=== PATIENT | male | born 1950 | race Caucasian/White ===

== ENCOUNTER 2020-08-01 13:29 | Outpatient (REF) | payer MEDICARE, MEDICAID, SELFPAY ==
[2020-08-01 15:20] LABS: Hematocrit 45.7 % (42-52); Mean Corpuscular HGB Conc 32.8 g/dl (31.0-36.0); Mean Corpuscular Hemoglobin 31.8 pg (27.0-33.0); Mean Platelet Volume 12.9 fL (9.4-12.4); Platelet Count 153 X10*3/uL (160-400); Red Blood Count 4.71 X10*6/uL (4.60-5.80); Red Cell Distribution Width 12.3 % (11.0-16.0); White Blood Count 7.2 X10*3/uL (4.8-10.8)
[2020-08-01 16:21] LABS: Alanine Aminotransferase 28 U/L (0-40); Albumin Level 4.3 g/dL (3.5-5.0); Alkaline Phosphatase 111 U/L (39-117); Anion Gap 13 (12-20); Aspartate Amino Transferase 24 U/L (5-37); Bilirubin Total 0.6 mg/dL (0.0-1.0); Blood Urea Nitrogen 21 mg/dL (9-16); Carbon Dioxide 33 mmol/L (22-29); Chloride 102 mmol/L (96-108); Cholesterol 119 mg/dL; Estimated Glomerular Filt Rate > 60; Glucose Random 85 mg/dL (60-115); HDL Cholesterol 42 mg/dL; LDL Cholesterol Calculated 62 mg/dl; Potassium 4.5 mmol/l (3.3-5.1); Sodium 143 mmol/L (135-145); Total Protein 6.7 g/dL (6.5-8.0); Triglycerides 77 mg/dL
== END 2020-08-01 13:30 | disposition home or self-care (01) ==
LOC: HO.LAB 13:29
PROVIDERS: Absent Provider Internal Medicine; PCP Internal Medicine; Visit Provider Internal Medicine
DX: I10 Essential (primary) hypertension (principal); J44.9 Chronic obstructive pulmonary disease, unspecified
CPT/HCPCS: 36415; 80053; 80061; 85027; 99212

== ENCOUNTER → 2021-01-31 13:59 | Outpatient (BNVA) | payer MEDICARE, MEDICAID, SELFPAY | PROVIDERS: PCP Internal Medicine; Visit Provider Internal Medicine | DX: J44.9 Chronic obstructive pulmonary disease, unspecified (principal); F17.200 Nicotine dependence, unspecified, uncomplicated | CPT/HCPCS: 99212 ==

== ENCOUNTER → 2021-05-04 14:44 | Outpatient (BNVA) | payer MEDICARE, MEDICAID, SELFPAY | PROVIDERS: PCP Internal Medicine; Visit Provider Internal Medicine | DX: J44.9 Chronic obstructive pulmonary disease, unspecified (principal); F17.200 Nicotine dependence, unspecified, uncomplicated | CPT/HCPCS: 99212 ==

== ENCOUNTER 2021-08-10 12:53 | Outpatient (REF) | payer MEDICARE, MEDICAID, SELFPAY ==
--- NOTE | ~2021-08-10 | CT_ITS ---
EXAMINATION: CT CHEST SCREENING CLINICAL INFORMATION: Former smoker. COMPARISON: CT chest screening 01/28/2020. TECHNIQUE: Multidetector volumetric CT imaging of the chest is performed without contrast using low dose technique. Additional 2D coronal and sagittal reformatted images and axial 3D maximum intensity projection (MIP) images are generated on the CT workstation. This CT examination was performed using dose optimization techniques as appropriate, variously including the following: *Automated exposure control *Adjustment of mA and/or kV according to patient size (this includes techniques or standardized protocols for targeted exams where dose is matched to indication/reason for exam; i.e. extremities or head) *Use of iterative reconstruction technique DLP: 210 mGy-cm FINDINGS: LUNGS: There is centrilobular emphysema with a 2 mm subpleural nodule right upper lobe, axial image 126/6; 2 mm nodule right upper lobe, axial image 208/6; 2 mm triangular nodular density right upper lobe anterior segment, image 202/6, are noted. Retrospectively they are faintly visualized. No acute pneumonic consolidation, mass or ground-glass attenuation seen. MEDIASTINUM: The heart size and the great vessels are normal caliber. The central trachea and the bronchi are widely patent. The thyroid lobes are symmetrical and normal. No abnormal-size mediastinal or hilar lymph nodes seen. Trace coronary artery calcifications seen. No pericardial effusion noted. PLEURA: There is no pleural effusion. No pleural mass or thickening. AXILLA: No lymphadenopathy. UPPER ABDOMEN: Visualized liver, spleen, pancreas and bilateral adrenal glands are unremarkable. OSSEOUS STRUCTURES: No lytic or sclerotic process seen. There are old right lateral healed rib fractures with mild deformity suspected. CT/CT lung screening IMPRESSION: Diffuse centrilobular emphysema. There are 2 mm insignificant pulmonary nodules that are visualized on the present exam. ASSESSMENT: Lung-RADS category 2: Benign RECOMMENDATION: Low-dose annual CT chest.
== END 2021-08-10 12:54 | disposition home or self-care (01) ==
LOC: HO.CT 12:53
PROVIDERS: Visit Provider Physician Assistant Medical
DX: Z12.2 Encounter for screening for malignant neoplasm of respiratory organs (principal); Z87.891 Personal history of nicotine dependence
CPT/HCPCS: 71271

== ENCOUNTER → 2021-09-27 15:02 | Outpatient (BNVA) | payer MEDICARE, MEDICAID, SELFPAY | PROVIDERS: PCP Internal Medicine; Visit Provider Internal Medicine | DX: J44.9 Chronic obstructive pulmonary disease, unspecified (principal); F17.210 Nicotine dependence, cigarettes, uncomplicated | CPT/HCPCS: 99212 ==

== ENCOUNTER → 2022-05-07 09:32 | Outpatient (BNVA) | payer MEDICARE, MEDICAID, SELFPAY | PROVIDERS: PCP Internal Medicine; Visit Provider Internal Medicine | DX: J44.9 Chronic obstructive pulmonary disease, unspecified (principal); F17.210 Nicotine dependence, cigarettes, uncomplicated | CPT/HCPCS: 99212 ==

== ENCOUNTER 2022-08-13 07:48 | Outpatient (REF) | payer MEDICARE, MEDICAID, SELFPAY ==
--- NOTE | ~2022-08-13 | CT_ITS ---
EXAMINATION: CT CHEST SCREENING CLINICAL INFORMATION: F17.210 - Nicotine dependence, cigarettes, uncomplicated. COMPARISON: CT lung screening 08/10/2021, 01/28/2020 TECHNIQUE: Multidetector volumetric CT imaging of the chest is performed without contrast using low dose technique. Additional 2D coronal and sagittal reformatted images and axial 3D maximum intensity projection (MIP) images are generated on the CT workstation. This CT examination was performed using dose optimization techniques as appropriate, variously including the following: *Automated exposure control *Adjustment of mA and/or kV according to patient size (this includes techniques or standardized protocols for targeted exams where dose is matched to indication/reason for exam; i.e. extremities or head) *Use of iterative reconstruction technique DLP: 40 mGy-cm FINDINGS: LUNGS: There is chronic hyperinflation/COPD. No airspace consolidation or groundglass opacity. Central airways are clear and there is no endobronchial lesion or bronchiectasis. Mild bronchiolar wall thickening again noted. Left lung shows no mass or interval significant nodule. There is a punctate nodule central left upper lobe under 3 mm, series 4/292. Right lung shows no mass or interval significant nodule. There is a tiny stable pleural-based nodule right anterior lateral apex under 3 mm, series 4/80. MEDIASTINUM: Small central and aorticopulmonary window nodes are stable. No interval adenopathy. Thoracic aorta normal in caliber. Heart size normal. No pericardial effusion. CORONARY ARTERY CALCIFICATION: There is atherosclerotic calcification demonstrated. PLEURA: There is no pleural effusion. No pleural mass or thickening. AXILLA: No lymphadenopathy. UPPER ABDOMEN: Unremarkable OSSEOUS STRUCTURES: Multilevel degenerative changes thoracic spine. No acute bony abnormality. CT/CT lung screening IMPRESSION: 1. Chronic hyperinflation/COPD. Mild bronchiolar wall thickening. 2. No mass, significant nodule, or significant changes. ASSESSMENT: Lung-RADS category 2: Benign RECOMMENDATION: Routine annual low-dose CT screening in 12 months.
== END 2022-08-13 07:49 | disposition home or self-care (01) ==
LOC: HO.CT 07:48
PROVIDERS: PCP Internal Medicine; Visit Provider Physician Assistant Medical
DX: Z12.2 Encounter for screening for malignant neoplasm of respiratory organs (principal); F17.210 Nicotine dependence, cigarettes, uncomplicated
CPT/HCPCS: 71271

== ENCOUNTER → 2022-10-30 09:31 | Outpatient (BNVA) | payer MEDICARE, MEDICAID, SELFPAY | PROVIDERS: PCP Internal Medicine; Visit Provider Internal Medicine | DX: J44.9 Chronic obstructive pulmonary disease, unspecified (principal); F17.210 Nicotine dependence, cigarettes, uncomplicated | CPT/HCPCS: 99212 ==

== ENCOUNTER 2023-04-30 09:40 | Outpatient (AMB) | payer MEDICARE, MEDICAID, SELFPAY ==
[2023-04-30 09:46] VITALS: BP 108/64; PULSE 86; O2SAT 96; BMI 21.3
--- NOTE | 2023-04-30 09:46 | MHC.OFFVIS ---
Intake Vital Signs 04/30/23 09:46 Height 5 ft 6 in Weight 132 lb BMI 21.3 BP 108/64 Blood Pressure Location Lt brachial Position Sitting Pulse 86 Pulse Source Pulse Oximeter Pulse Oximetry (%) 96 Oxygen Delivery Method Room Air Intake Visit Reasons: copd Intake Note: pt is here for follow up and states short of breath at times, but he deals with it. Chemists Required: No Allergies contac cold Adverse Reaction (Unknown, Uncoded 04/30/23 10:05) Nausea and Vomiting Medication List - Last Reconciled 04/30/23 by Solomon Peguero MD Anoro Ellipta 62.5-25 mcg/actuation (umeclidinium-vilanterol) 1 ea PO DAILY NS aspirin 81 mg PO DAILY atorvastatin 40 mg PO DAILY Combivent Respimat 20-100 mcg/actuation (ipratropium-albuterol) 1 puff PO Q6H NS fluticasone furoate-vilanterol 100-25 mcg/dose (Breo Ellipta) 1 inh inhalation DAILY 30 days furosemide 20 mg PO DAILY Do you need a note to return to daycare/school/sports/work: No HPI copd HPI Details This 72 years old gentleman is very pleasant , persistent smoker, with advanced chronic obstructive pulmonary disease He is here for 6 months follow-up. He still smokes about 10 cigarettes a day, tells me that he is trying to cut down the number of cigarettes. He has usual mild intermittent cough and expectoration. He does get short of breath when he walks from the house to the grocery store, but he has learned to live with this. He say is basically he is remaining very stable at this time. The use of current inhalers is helping . HE DOES NOT WANT TO HAVE ANY VACCINES. [facility] Medical History Smoker COPD (chronic obstructive pulmonary disease) Social History Patient Tobacco Use Status: Current everyday Tobacco user Cigarettes Per Day: 10 Review of Systems Const All systems reviewed & are unremarkable except as noted in HPI and below Eyes Reports no additional complaints ENT Reports no additional complaints Card Denies chest pain, Denies irregular heart rhythm and Denies leg edema Resp Reports as per HPI GI Reports no additional complaints Reports no additional complaints Musc Reports no additional complaints Skin/Breast Reports system reviewed and no additional complaints, except as documented Neuro Reports no additional complaints Psych Reports no additional complaints Physical Exam Vital Signs: Last Vital Signs Pulse 86 04/30/23 09:46 BP 108/64 04/30/23 09:46 Pulse Ox 96 04/30/23 09:46 Oxygen Delivery Method Room Air 04/30/23 09:46 BMI result Body Mass Index 21.3 Const General: comfortable, no acute distress, alert and awake Orientation/consciousness: patient oriented x3 HEENT Head: Yes normal to inspection General nose exam: No nasal polyps present and No nasal discharge present Face and sinus: Yes sinuses nontender Mouth: oropharynx normal Throat: Yes posterior oropharynx normal Eyes General: appearance normal, both eyes and all related structures Neck Neck: Yes normal visual inspection, Yes no lymphadenopathy, Yes trachea midline and Yes no JVD Thyroid: Thyroid normal Chest Chest palpation & inspection: normal inspection of the chest, normal palpation of entire chest wall and no tenderness Resp Other: Percussion note resonant, breath sounds are very distant with prolonged expiratory phase. No wheezes rhonchi or crepitations are heard. Cardio Palpation: normal PMI Rate: regular rate Rhythm: regular rhythm Heart sounds: no gallops and no murmurs GI Palpation (GI): Soft to palpation, nontender, No hepatosplenomegaly present and no masses Auscultation: normal bowel sounds Back/Spine/Pelvis Thoracic/Lumbar Spine: thoracic and lumbar spine normal to inspection Skin General skin exam: no rashes or lesions noted and dry skin Neuro General: patient oriented x3 and no focal motor deficits Cranial nerves: Yes CN's II-XII intact bilaterally Extrem General: Yes normal to inspection, Yes no clubbing, cyanosis or edema and Yes no calf tenderness Psych Appearance: grossly normal Speech and movement: Normal speech and movement present Assessment & Plan Assessment & Plan (1) COPD (chronic obstructive pulmonary disease): Comment: He does have rather severe degree of chronic obstructive pulmonary disease. It is fairly well controlled at this time, with the current regimen, but has increased bouts of cough and congestion in the morning since he is not using Symbicort. TX: Anoro Ellipta 1 inhalation daily. Breo 100-25 one inh daily Combivent Respimat 1 inhalation q.6 hours p.r.n. does not have to use albuterol. Code(s): J44.9 - Chronic obstructive pulmonary disease, unspecified (2) Smoker: Comment: STILL SMOKING 10 CIGARETTES A DAY . Had a good discussion with him. I told him that his goal should be to quit smoking completely, and sooner the better. Risks of continued smoking or explained to him. He does not seem to be motivated to quit completely, I urged him to at least cut down to 5 cigarettes a day. He is participating in Annual lung screening program. Code(s): F17.200 - Nicotine dependence, unspecified, uncomplicated Coding Level of Care Code Est Pt Level 3 (40228) Diagnoses COPD (chronic obstructive pulmonary disease) J44.9 Smoker F17.200
== END 2023-04-30 10:12 | disposition home or self-care (01) ==
PROVIDERS: PCP Internal Medicine; Visit Provider Internal Medicine
DX: J44.9 Chronic obstructive pulmonary disease, unspecified (principal); F17.200 Nicotine dependence, unspecified, uncomplicated
CPT/HCPCS: 99213

== ENCOUNTER → 2023-04-30 09:40 | Outpatient (BNVA) | payer MEDICARE, MEDICAID, SELFPAY | PROVIDERS: PCP Internal Medicine; Visit Provider Internal Medicine | DX: J44.9 Chronic obstructive pulmonary disease, unspecified (principal); F17.210 Nicotine dependence, cigarettes, uncomplicated | CPT/HCPCS: 99212 ==

== ENCOUNTER 2023-11-26 10:13 | Outpatient (REF) | payer MEDICARE, MEDICAID, SELFPAY ==
--- NOTE | ~2023-11-26 | CT_ITS ---
EXAMINATION: CT LOW-DOSE SCREENING CHEST WITHOUT CONTRAST CLINICAL INFORMATION: Nicotine dependence, cigarettes, uncomplicated. The patient is a current smoker with a 58 pack-year history of smoking. COMPARISON: CT chest 08/13/2022. X-ray chest 12/10/2019. TECHNIQUE: Multidetector volumetric CT imaging of the chest is performed on a Siemens SOMATOM Perspective scanner without contrast using low dose technique. Additional 2D coronal and sagittal reformatted images and axial 3D maximum intensity projection (MIP) images are generated on the CT workstation. This CT examination was performed using dose optimization techniques as appropriate, variously including the following: *Automated exposure control. *Adjustment of mA and/or kV according to patient size (this includes techniques or standardized protocols for targeted exams where dose is matched to indication/reason for exam; i.e. extremities or head). *Use of iterative reconstruction technique. TOTAL EXAM DLP: 72 mGy-cm. CTDIvol: 1.64 mGy. FINDINGS: PULMONARY NODULES: A number of new pulmonary nodules are present includin mm left apical nodule (5:40). 7 mm right upper lobe nodule (5:71). 5 mm left upper lobe nodule (5:143). 3 mm left upper lobe nodule (5:221). 3 mm right upper lobe nodule (5:176). 1.9 x 1.2 x 0.8 cm ovoid nodule superior segment left lower lobe (5:245). LUNGS: Lungs bilaterally symmetrically expanded. Marked emphysematous changes are present. Mild bronchial thickening is seen. No effusion or pneumothorax. Central airways patent. MEDIASTINUM: No mediastinal, hilar or axillary adenopathy or free fluid collection. CORONARY ARTERY CALCIFICATION: Present. THYROID GLAND: Unremarkable to the extent seen. CARDIOVASCULAR STRUCTURES: Aortic and heart size normal. No pericardial effusion. CHEST WALL/AXILLA: Unremarkable. UPPER ABDOMEN: Included portions of the solid organs in the upper abdomen unremarkable on noncontrast imaging. OSSEOUS STRUCTURES: No suspicious focal findings. Degenerative changes are present in the spine. CT/CT lung screening IMPRESSION: Multiple new pulmonary nodules. Suspicious for malignancy. Severe emphysema. ASSESSMENT: 1. Lung-RADS Category 4B: Suspicious findings. 2. Lung-RADS Category S: Negative. There are no clinically significant or potentially clinically significant findings not related to the lungs requiring urgent additional evaluation. RECOMMENDATION: A PET/CT is recommended, or possibly even biopsy. A PET/CT may be used when there is a solid nodule greater than or equal to 8 mm. At the very least, a short-term 3 month follow-up is recommended if PET/CT or biopsy is not performed.
== END 2023-11-26 10:14 | disposition home or self-care (01) ==
LOC: HO.CT 10:13
PROVIDERS: PCP Internal Medicine; Visit Provider Nurse Practitioner Family
DX: Z12.2 Encounter for screening for malignant neoplasm of respiratory organs (principal); F17.210 Nicotine dependence, cigarettes, uncomplicated
CPT/HCPCS: 71271

== ENCOUNTER 2023-12-17 11:51 | Outpatient (REF) | payer MEDICARE, MEDICAID, SELFPAY ==
[2023-12-17 09:50] VITALS: PULSE 108; RESP 16; O2SAT 94
--- NOTE | 2023-12-17 13:42 | PFT_ITS ---
Flows: FEV1: 26 % of predicted at 0.74 L FVC: 61 % of predicted at 2.29 L FEV1/FVC: 33 % Bronchodilator response: Present Volumes: Patient unable to perform lung volumes maneuvers. Diffusion capacity: Severely decreased Impression: Very severe obstructive ventilatory defect with positive bronchodilator response. Patient was unable to perform lung volumes maneuvers. Decreased diffusion capacity suggests emphysema. MTDD
== END 2023-12-17 11:52 | disposition home or self-care (01) ==
LOC: HO.RESP 11:51
PROVIDERS: PCP Internal Medicine; Visit Provider Physician Assistant Medical
DX: R91.1 Solitary pulmonary nodule (principal); J44.9 Chronic obstructive pulmonary disease, unspecified; F17.200 Nicotine dependence, unspecified, uncomplicated
CPT/HCPCS: 94010; 94640; 94727; 94729

== ENCOUNTER → 2023-12-17 13:42 | Outpatient (BNV) | payer MEDICARE, MEDICAID, SELFPAY | PROVIDERS: PCP Internal Medicine; Visit Provider Internal Medicine Pulmonary Disease | DX: J44.9 Chronic obstructive pulmonary disease, unspecified (principal); F17.210 Nicotine dependence, cigarettes, uncomplicated; R91.1 Solitary pulmonary nodule | CPT/HCPCS: 94060; 94729 ==

== ENCOUNTER 2023-12-25 15:36 | Outpatient (AMB) | payer MEDICARE, MEDICAID, SELFPAY ==
[2023-12-25 15:37] VITALS: BMI 18.4
--- NOTE | 2023-12-25 15:37 | A.OFFVIS_ITS ---
Vital Signs 12/25/23 15:37 Height 5 ft 6 in Weight 114 lb 0.7 oz BMI 18.4 Intake Visit Reasons: Pulmonary nodule, COPD follow-up Intake Note: pt is on the telephone for clearance for ct scan guided biopsy and he states he feels pretty good. Senior Market Intelligence Consultant Required: No Allergies contac cold Adverse Reaction (Unknown, Uncoded 12/25/23 15:47) Nausea and Vomiting Medication List - Last Reconciled 12/25/23 by Solomon Peguero MD Anoro Ellipta 62.5-25 mcg/actuation (umeclidinium-vilanterol) 1 ea PO DAILY NS aspirin 81 mg PO DAILY atorvastatin 40 mg PO DAILY Combivent Respimat 20-100 mcg/actuation (ipratropium-albuterol) 1 puff PO Q6H NS fluticasone furoate-vilanterol 100-25 mcg/dose (Breo Ellipta) 1 inh inhalation DAILY 30 days furosemide 20 mg PO DAILY Do you need a note to return to daycare/school/sports/work: No HPI HPI Pulmonary nodule: Details: Mr. Delgado is 73 years old very pleasant gentleman, with past history of smoking. He has advanced chronic obstructive pulmonary disease, which is being treated with combination of inhalers and he is staying well and stable. He has been participating in annual lung screening program. His last low-dose CT scan was on 11/26/2023, and it showed multiple pulmonary nodules, but 1 nodule which was of concern, was an ovoid nodule with size 1.9 x 1.2 x 0.8 cm in left lower lobe. This nodule is quite concerning. This case was reviewed in the multidisciplinary lung screening committee, and a percutaneous needle biopsy was recommended. The patient is scheduled to have this procedure next week. This TELEVISIT encounter today is for the purposes of clearance for the procedure. As patient could not come to the office physically, we have done this tele visit evaluation. He claims that his breathing status is stable and well controlled at this time. Because of his advanced COPD he does get short of breath on walking around and also has mild intermittent cough. He uses Breo 100-251 inhalation daily, and Anoro Ellipta 1 inhalation daily He does have Combivent Respimat and uses it only p.r.n. when he gets acute shortness of breath. He denies having had any respiratory infection lately. He does not have any history of bleeding disorder He has no significant allergies. [facility] Medical History Smoker COPD (chronic obstructive pulmonary disease) Social History Patient Tobacco Use Status: Current everyday Tobacco user Cigarettes Per Day: 3 Review of Systems Const All systems reviewed & are unremarkable except as noted in HPI and below Eyes Reports no additional complaints ENT Reports no additional complaints Card Denies chest pain, Denies irregular heart rhythm and Denies leg edema Resp Reports as per HPI GI Reports no additional complaints Reports no additional complaints Musc Reports no additional complaints Skin/Breast Reports system reviewed and no additional complaints, except as documented Neuro Reports no additional complaints Psych Reports no additional complaints Physical Exam Const Other: TELE VISIT SO NO PHYSICAL EXAM WAS PERFORMED. Telehealth Telehealth Telehealth Platform: Telephone Location of provider rendering services: practice address Location of patient: address on file Patient Identification confirmed using: Name, : Yes Telehealth method: voice only Patient verbally consented to treatment: Yes Patient verbally consented to billing insurance company: Yes Patient informed of any privacy concerns related to visit: Yes Assessment & Plan Assessment & Plan (1) COPD (chronic obstructive pulmonary disease): Comment: He does have rather severe degree of chronic obstructive pulmonary disease. It is fairly well controlled at this time, with the current regimen . Code(s): J44.9 - Chronic obstructive pulmonary disease, unspecified Category: Medical Plan: TX: CONTINUE : Anoro Ellipta 1 inhalation daily. Breo 100-25 one inh daily Combivent Respimat 1 inhalation q.6 hours p.r.n. does not have to use albuterol. (2) Smoker: Comment: STILL SMOKING 10 CIGARETTES A DAY . Had a good discussion with him. I told him that he needs to quit smoking completely and sooner the better. Risks of continued smoking explained to him. He does not seem to be motivated to quit completely, I urged him to at least cut down to 5 cigarettes a day. He is participating in Annual lung screening program. Code(s): F17.200 - Nicotine dependence, unspecified, uncomplicated Category: Social Hx Plan: as above (3) Left lower lobe pulmonary nodule: Comment: (1.9 x 1.2 x 0.8 cm LLL nodule - on 11/26/23 LDCT) In addition he also has multiple nodules which are of his smaller size. Code(s): R91.1 - Solitary pulmonary nodule Category: Medical Plan: In the multidisciplinary committee meeting it was recommended that patient should percutaneous needle biopsy of this nodule. The procedure is scheduled for next week. I have talked to the patient and explained to him in detail. He is willing to undergo the procedure. He does not have any bleeding disorder. THERE IS NO CONTRAINDICATION TO UNDERGO THIS PROCEDURE. Possible complications such as bleeding and pneumothorax explained to the patient and he understands. Coding Level of Care Code Tele New Pt Level 4 (81839) Diagnoses COPD (chronic obstructive pulmonary disease) J44.9 Smoker F17.200 Left lower lobe pulmonary nodule R91.1
== END 2023-12-25 16:04 | disposition home or self-care (01) ==
LOC: HO.HPS 15:36
PROVIDERS: PCP Internal Medicine; Visit Provider Internal Medicine
DX: J44.9 Chronic obstructive pulmonary disease, unspecified (principal); F17.210 Nicotine dependence, cigarettes, uncomplicated; R91.1 Solitary pulmonary nodule
CPT/HCPCS: 99443

== ENCOUNTER → 2023-12-25 15:36 | Outpatient (BNVA) | payer MEDICARE, MEDICAID, SELFPAY | PROVIDERS: PCP Internal Medicine; Visit Provider Internal Medicine ==

== ENCOUNTER → 2023-12-31 08:55 | Outpatient (BNV) | payer MEDICARE, MEDICAID, SELFPAY | PROVIDERS: PCP Internal Medicine; Visit Provider Physician Assistant Surgical | DX: R91.1 Solitary pulmonary nodule (principal); J95.811 Postprocedural pneumothorax | CPT/HCPCS: 32408; 32551; 77012; 99499 ==

== ENCOUNTER → 2023-12-31 13:40 | Outpatient (BNV) | payer MEDICARE, MEDICAID, SELFPAY | PROVIDERS: PCP Internal Medicine; Visit Provider Internal Medicine | DX: R94.31 Abnormal electrocardiogram [ECG] [EKG] (principal) | CPT/HCPCS: 93010 ==

== ENCOUNTER 2023-12-31 16:09 | Inpatient (IN) | payer MEDICARE, OTHER, SELFPAY ==
[2023-12-31] VITALS (16 sets, daily range): BP systolic 76–116; BP diastolic 41–72; PULSE 66–90; RESP 15–22; TEMP 36.4–37.4; O2SAT 92–100; BMI 17.8; BMI 18.5
--- NOTE | 2023-12-31 | ECG_ITS ---
Test Reason : chest pain Blood Pressure : / mmHG Vent. Rate : 067 BPM Atrial Rate : 067 BPM P-R Int : 178 ms QRS Dur : 138 ms QT Int : 436 ms P-R-T Axes : 082 132 066 degrees QTc Int : 460 ms Normal sinus rhythm Right bundle branch block Abnormal ECG No previous ECGs available Referred By: Main Mayo Electronically Signed By:DELIA GONZALES
--- NOTE | ~2023-12-31 | XR_ITS ---
EXAMINATION: XR CHEST CLINICAL INFORMATION: Status post removal of left chest tube. COMPARISON: Chest radiograph performed 01/02/2024 11:52 AM. TECHNIQUE: Frontal view of the chest was obtained. FINDINGS: The left sided pigtail catheter has been removed. The tiny left apical pneumothorax appears similar to prior exam. No pleural effusion. No consolidation. No acute osseous abnormality. There is left axillary subcutaneous emphysema. XR/XR chest 1V IMPRESSION: The tiny left apical pneumothorax appears similar to the prior examination status post pigtail catheter removal. This critical result was discussed with DR NATHAN at 5:15 PM on 01/02/2024 and it was ascertained that the content and urgency of the report was understood at the time of direct communication.
--- NOTE | ~2023-12-31 | XR_ITS ---
EXAMINATION: XR CHEST CLINICAL INFORMATION: Pneumothorax evaluation COMPARISON: Earlier 01/01/2024 exam TECHNIQUE: Frontal view of the chest was obtained. FINDINGS: Lungs hyperaerated but grossly clear. Cardiac mediastinal silhouette is stable. Left-sided pigtail chest tube in stable position. Previously noted left apical pneumothorax is barely conspicuous. No change. Previously noted subcutaneous emphysema overlying the left axilla is unchanged. XR/XR chest 1V IMPRESSION: Stable findings.
--- NOTE | ~2023-12-31 | XR_ITS ---
EXAMINATION: XR CHEST CLINICAL INFORMATION: Follow-up left sided pneumothorax COMPARISON: 01/01/2024, CT scan from 12/31/2023 TECHNIQUE: Frontal view of the chest was obtained. FINDINGS: There is pigtail catheter present on the left. Lungs are hyperinflated with flattening of the diaphragm. Left apical pneumothorax is barely seen soft tissue emphysema over the left axilla is still present. XR/XR chest 1V IMPRESSION: No significant interval change
--- NOTE | ~2023-12-31 | XR_ITS ---
EXAMINATION: XR CHEST CLINICAL INFORMATION: Difficulty breathing. COMPARISON: 12/31/2023 TECHNIQUE: Frontal view of the chest was obtained. FINDINGS: The cardiomediastinal silhouette is stable. The lung agudelo are hyperinflated and hyperlucent. A pigtail left-sided chest tube is noted in place overlying the lateral left mid to lower lung field. There is a small residual left apical pneumothorax. There is left chest wall subcutaneous emphysema.The bony structures are unremarkable. XR/XR chest 1V IMPRESSION: 1. Small residual left apical pneumothorax with pigtail chest tube in place. 2. Hyperinflated lung agudelo. 3. Left chest wall subcutaneous emphysema.
--- NOTE | ~2023-12-31 | CT_ITS ---
CLINICAL HISTORY: Left pneumothorax after left lung biopsy PROCEDURES: 1. Limited preprocedure CT of the chest. Permanent images saved in PACS. 2. CT-guided left chest tube 3. Limited post procedure CT of the chest. Permanent images saved in PACS. CLINICIANS: Main Maoy PA-C MEDICATIONS: -Fentanyl 25 mcg, and lidocaine 1% 10 mL SQ -Antibiotics: None -For additional details, please see nursing flowsheet. COMPLICATIONS: None ESTIMATED BLOOD LOSS: < 5 ml CONTRAST: None SPECIMENS: PROCEDURE NOTE: The procedure, risks, benefits, and alternatives were carefully explained to the patient and written informed consent was obtained. The patient was placed supine on the CT table. A timeout was performed. A limited CT of the chest was performed to localize the left pneumothorax and choose appropriate needle entry and trajectory. The patient was prepped and draped in usual sterile fashion. The skin and subcutaneous tissues were anesthetized with lidocaine. Under CT guidance, a 5 [place] Yueh catheter was advanced into the left pleural space. Air was immediately aspirated. A 0.0035 J wire was inserted through the the catheter and coiled in the left pleural space. The catheter was then removed over the wire. The tract was then serially dilated. Over the wire, a 10 fr all-purpose drainage catheter was advanced and coiled into the left pleural space, under CT guidance. The wire was then removed. The catheter was secured to the skin with a 2-0 nylon suture. The drainage catheter was connected to a close drainage system. A limited postprocedure CT was then obtained. The patient was stable after the procedure and was transferred to the post anesthesia care unit. CT/CT chest tube placement Impression: CT guided left chest tube placement for left pneumothorax after lung biopsy This procedure was performed by Main Mayo PA-C and supervised by Dr. Perry.
--- NOTE | ~2023-12-31 | XR_ITS ---
EXAMINATION: XR CHEST CLINICAL INFORMATION: Left pneumothorax COMPARISON: Multiple previous studies TECHNIQUE: Frontal view of the chest was obtained. FINDINGS: There is pigtail catheter over the left hemithorax. Left apical pneumothorax is barely seen. Cardiomediastinal silhouette is unremarkable. There is patchiness over the right apex. Subcutaneous emphysema seen over the left axilla XR/XR chest 1V IMPRESSION: Residual left apical pneumothorax
--- NOTE | ~2023-12-31 | CT_ITS ---
Left lower lobe lung nodule PROCEDURES: 1. Limited preprocedure CT of the chest. Permanent images saved in PACS. 2. CT-guided biopsy of the left lower lobe lung nodule 3. Limited postprocedure CT of the chest. Permanent images saved in PACS. CLINICIANS: Main Mayo PA-C MEDICATIONS: -Versed 1.5 mg, Fentanyl 75 mcg, and lidocaine 1% 10 mL SQ -Antibiotics: None -For additional details, please see nursing flowsheet. COMPLICATIONS: None ESTIMATED BLOOD LOSS: < 5 ml CONTRAST: None SPECIMENS: 3 x 20 g cores were sent for pathology MODERATE SEDATION TIME: 20 min PROCEDURE NOTE: The procedure, risks, benefits, and alternatives were carefully explained to the patient and written informed consent was obtained. The patient was placed in the right lateral decubitus position on the CT table. A timeout was performed. A limited CT of the chest was performed to localize the left lower lobe lung nodule and choose appropriate needle entry and trajectory. The patient was prepped and draped in usual sterile fashion. The skin and deeper soft tissues were anesthetized with lidocaine. Under CT guidance, a19 gague trocar needle was advanced to the left lung nodule. A 20 gauge biopsy device was inserted through the trocar needle and advanced into the mass. A total of 3 cores were performed. The specimens were placed in formalin and sent to pathology. A total of 10 mL of nonclotted blood was obtained from the patient's IV by the nursing staff. A blood patch was then administered through the trocar needle. The needle was removed. A dry dressing was applied and secured with Tegaderm. A limited postprocedure CT of the chest was performed, which did not demonstrate any pneumothorax or hemothorax. There were no immediate complications. The patient was stable after the procedure and was transferred to the post anesthesia care unit. The procedure was done under moderate sedation with a dedicated nurse for monitoring of vital signs. CT/CT biopsy lung LT Impression: CT-guided left lung lung nodule biopsy This procedure was performed by Main Mayo PA-C and supervised by Dr. Perry.
--- NOTE | ~2023-12-31 | XR_ITS ---
EXAMINATION: XR CHEST CLINICAL INFORMATION: Status post left lung biopsy COMPARISON: CT biopsy from 12/31/2023 TECHNIQUE: Frontal view of the chest was obtained. FINDINGS: Small to moderate left-sided pneumothorax. Hyperinflation the bilateral lung agudelo. Flattening the bilateral hemidiaphragms. Trachea is midline. Cardiac mediastinal silhouette is stable. Aorta demonstrates atherosclerotic calcifications. No large pleural effusion. Osseous structures are intact. Soft tissues are unremarkable. XR/XR chest 1V IMPRESSION: 1. Small to moderate left-sided pneumothorax. 2. Hyperinflation the bilateral lung agudelo. 3. Flattening the bilateral hemidiaphragms.
[2023-12-31 09:23] LABS: MANUAL DIFF FLAG NO
[2023-12-31 09:24] LABS: Basophils Percent Auto 0.4 % (0-2); Eosinophils Absolute Auto 0.4 X10*3/uL (0.0-0.4); Eosinophils Percent Auto 5.8 % (0-4); Hematocrit 47.1 % (42.0-52.0); Hemoglobin 15.9 g/dl (14.0-18.0); Imm Gran Abs Auto 0.02 X10*3/uL (0.00-0.03); Imm Gran Pct Auto 0.3 % (0.0-0.4); Lymphocytes Absolute Auto 1.1 X10*3/uL (1.2-4.9); Lymphocytes Percent Auto 15.9 % (20-40); Mean Corpuscular HGB Conc 33.8 g/dl (31.0-36.0); Mean Corpuscular Hemoglobin 33.3 pg (27.0-33.0); Mean Corpuscular Volume 98.5 fL (80.0-98.0); Mean Platelet Volume 11.9 fL (9.4-12.4); Monocytes Absolute Auto 0.6 X10*3/uL (0.1-1.2); Monocytes Percent Auto 8.8 % (2-11); Neutrophils Absolute Auto 4.7 x10*3/uL (2.0-8.3); Neutrophils Percent Auto 68.8 % (45-73); Platelet Count 153 X10*3/uL (160-400); Red Blood Count 4.78 X10*6/uL (4.60-5.80); Red Cell Distribution Width 12.5 % (11.0-16.0); White Blood Count 6.9 X10*3/uL (4.8-10.8)
[2023-12-31 09:30] LABS: INTERNATIONAL NORM RATIO 0.9 (0.9-1.1); Prothrombin Time 11.2 SEC (11.1-13.3)
[2023-12-31 09:33] LABS: Partial Thromboplastin Time 36.6 SEC (26.0-36.8)
--- NOTE | 2023-12-31 10:30 | PC.NURSE ---
Patient in SSS. SR with RBBB on monitor. No EKG on file for comparison. Henry Mayo made aware. No new orders at this time.
--- NOTE | 2023-12-31 10:32 | PC.NURSE ---
Patient in SSS. PMH reviewed with patient. History of stroke and heart attacks added. Henry Mayo made aware. No new orders at this time.
--- NOTE | 2023-12-31 10:44 | MHC.SHP ---
Pre-Procedural Eval Section A - 24 Hr Update-Section A only Date of Service: 12/31/23 Section B - Complete if H&P > 30 days Chief Complaint: solid nodule greater than or egual to 8mm,LEFT HERMAN Details of Present Illness: 73 y/o man with a LLL lung nodule. Pulmonology requests a biopsy Relevant Family History (Specify if Yes): No Relevant Social History: Tobacco Use Present Medications: see Short Stay Collaborative assessment Medical History: Significant History History of Previous Operations: No relevant previous surgery Allergies: Allergies Allergy/AdvReac Type Severity Reaction Status Date / Time contac cold AdvReac Intermediate Nausea and Uncoded 12/31/23 09:15 Vomiting Review of Systems Sugical H&P ROS: Negative: Cardiovascular, Respiratory and Neurological Exam Surgical H&P Exam: Normal: Heart, Normal: Lungs, Normal: Skin and Normal: Neurological and Not Evaluated: HEENT Plan CT left lung biopsy Time Spent With Patient Time: Total time managing care of this patient today ____ minutes.
--- NOTE | 2023-12-31 13:57 | PM.PROC ---
Brief Operative Note Date of procedure: 12/31/23 Pre-op diagnosis: Left lung nodule Post-op diagnosis: other (Left lung nodule, post procedure pneumthorax) Procedure: 1) CT left lung nodule biopsy 2) CT left chest tube 3 x 20 g cores performed. 1 hr post cxr showed small to moderate pneumothorax. A 10 fr anterior pigtail was placed under CT. Anesthesia: local (Fentanyl) Condition: stable Disposition: PACU
--- NOTE | 2023-12-31 16:52 | PM.IMHP ---
History of Present Illness Date of Service: 12/31/23 Attending physician on admission: Ngozi Umana Chief Complaint: pneumothorax 73 y/o m with copd and current smoker- has been participating in annual lung screening program,His last low-dose CT scan was on 11/26/2023, and it showed multiple pulmonary nodules, but 21 nodule which was of concern ,and a percutaneous needle biopsy was recommended.Patient came for elective lung nodule biopsy -s/p core biopsy left lung afterwards-developed left side pneumothorax ( d/w IR PA) and s/p chest tube . He claims that his breathing status is stable and well controlled at this time.patient has some soarness at chest tube site . denies any chest pain or sob or abd pain or nausea or vomiting or abd pain. at baseline: Because of his advanced COPD he does get short of breath on walking around and also has mild intermittent cough. He uses Breo 100-251 inhalation daily, and Anoro Ellipta 1 inhalation daily He does have Combivent Respimat and uses it only p.r.n. when he gets acute shortness of breath. Review of Systems Review of Systems: as above. Yes all other systems are reviewed and are negative [facility] Medical History History of fall Stroke Heart attack Prostate cancer Smoker COPD (chronic obstructive pulmonary disease) Surgical History H/O colonoscopy History of hand surgery History of prostate surgery Social History Patient Tobacco Use Status: Current everyday Tobacco user Tobacco use type: Cigarette Cigarettes Per Day: 3 Patient Interested in Nicotine Replacement: No Advance Directives: No Advance Directives Information Provided: Yes Meds Allergies Allergy/AdvReac Type Severity Reaction Status Date / Time contac cold AdvReac Intermediate Nausea and Uncoded 12/31/23 09:15 Vomiting Active Medications: Current Medications Sodium Chloride (0.9 % Sodium Chloride Flush 3 Ml Syringe) 3 ml IVFLUSH [facility] Home Medications ?Medication ?Instructions ?Recorded ?Confirmed ?Last Taken ?Type aspirin 81 mg tablet,delayed 81 mg PO DAILY 08/01/20 12/31/23 Unknown History release atorvastatin 40 mg tablet 40 mg PO DAILY 08/01/20 12/31/23 Unknown History furosemide 20 mg tablet 20 mg PO DAILY 08/01/20 12/31/23 Unknown History Physical Exam Vital Signs and Narrative: Vital Signs: Last Vital Signs Temp 97.5 F 12/31/23 16:45 Pulse 81 12/31/23 16:45 Resp 15 12/31/23 16:45 BP 105/60 12/31/23 16:45 Pulse Ox 96 12/31/23 16:45 O2 Del Method Nasal Cannula 12/31/23 16:45 O2 Flow Rate 2 12/31/23 16:45 BMI result Body Mass Index 17.8 Appearing in no acute distress lung sounds : air netry fair ,has left sided chest tube. heart regular rate rhythm, clear S1, S2 abd : positive bowel sounds, abdomen is soft, nontender neuro patient is alert x3, no focal deficits ext :no cyanosis or edema Results Labs 12/31/23 09:19 Labs: Laboratory Results - last 24 hr 12/31/23 09:19 MCV 98.5 H MCH 33.3 H MCHC 33.8 RDW 12.5 Plt Count 153 L MPV 11.9 Immature Gran % (Auto) 0.3 Neut % (Auto) 68.8 Lymph % (Auto) 15.9 L Story % (Auto) 8.8 Eos % (Auto) 5.8 H Baso % (Auto) 0.4 Lymph # (Auto) 1.1 L Story # (Auto) 0.6 Eos # (Auto) 0.4 Baso # (Auto) 0.0 Abs Immat Gran (auto) 0.02 Absolute Neuts (auto) 4.7 Absolute Nucleated RBC 0.000 Nucleated RBC % (auto) 0.0 PT 11.2 INR 0.9 APTT 36.6 Assessment and Plan (1) Left lower lobe pulmonary nodule: Status: Acute (2) COPD (chronic obstructive pulmonary disease): Qualifiers: Emphysema type: unspecified COPD type: emphysema Qualified Code(s): J43.9 - Emphysema, unspecified Status: Acute (3) Pneumothorax: Qualifiers: Pneumothorax type: postprocedural Qualified Code(s): J95.811 - Postprocedural pneumothorax Status: Acute Plan 73 y/o m with copd and current smoker- has been participating in annual lung screening program,His last low-dose CT scan was on 11/26/2023, and it showed multiple pulmonary nodules, but 21 nodule which was of concern ,and a percutaneous needle biopsy was recommended.Patient came for elective lung nodule biopsy -s/p core biopsy left lung afterwards-developed -s/p core biopsy left lung afterwards-developed left side pneumothorax ( d/w IR PA) and s/p chest tube. Lung nodule biopsy- -s/p core biopsy left lung afterwards-developed left side pneumothorax ( d/w IR PA) and s/p chest tube pain management , bowel regimen ,thoracic surgery eval,repeat cxr in am. hx of copd : stable continue home meds. current smoker: added nicotein patch. continue other home meds, hols asa since has chest tube today dvt : scd. Patient will benefit from observation admission for postop pneumothorax after lung biopsy-need cxr follow in am ,tele monitering ,throacic surgery eval/chest tube management and pain control. Quality Stroke Does the patient have a stroke diagnosis?: No VTE Prior VTE?: No VTE Risk Level:: Medical - moderate - high VTE Device Contraindication: N/A - Device Ordered VTE Drug Contraindication: N/A - Med Ordered
[2023-12-31] MEDS: 0.9 % Sodium Chloride Flush 3 ML SYRINGE IVFLUSH (23:51)
[2023-12-31] MEDS: Acetaminophen 325 MG TABLET 975 MG PO (23:52)
[2024-01-01] VITALS (8 sets, daily range): BP systolic 95–137; BP diastolic 52–77; PULSE 66–79; RESP 16–20; TEMP 36–36.4; O2SAT 93–100; BMI 18.5
[2024-01-01] MEDS: Albuterol/Iprat 2.5/0.5MG 3 ML AMPUL.NEB INHALE ×2 (00:08→17:22)
--- NOTE | 2024-01-01 01:00 | MHC.PIE ---
P.Difficulty breathing I.Pt received scheduled UPD treatment and shortly after c/o increased difficulty breathing.States he coughed up some mucus but feels like his breathing is worse.Sat 96% on O2 2L.Lungs sl more congested.Dr Novak notified and up to floor to see patient.Stat CXR ordered and MS 2mg IV x 1.Also VABG'S for morning. E.Good effect from MS,CXR reviewed by MD.No acute changes.Cont to monitor.
[2024-01-01] MEDS: Morphine Sulfate 2 MG/ML CARTRIDGE IVPUSH (01:50)
[2024-01-01 06:23] LABS: Venous Blood Gas Refer to POC result
[2024-01-01] MEDS: Acetaminophen 325 MG TABLET 975 MG PO ×4 (06:24→23:19)
[2024-01-01 06:25] LABS: VBG Base Excess 4.6 mmol/L; VBG HCO3 29 mmol/L (22-26); VBG pCO2 45 mmHg; VBG pH 7.42 (7.32-7.43); VBG pO2 61 mmHg
--- NOTE | 2024-01-01 07:42 | PHA.MEDREC ---
Pharmacy Consult ? Medication Reconciliation Pharmacy has completed the medication reconciliation. Completed by Vickie 12/31/23
[2024-01-01] MEDS: Fluticasone/Vilanterol 100/25 BLST.W.DEV 1 PUFF INHALE (08:14)
--- NOTE | 2024-01-01 08:19 | PM.EVENT ---
Event Note Date of Service: 01/01/24 Event Note: IR progress note S: Feels well, reports baseline dyspnea. Sore at chest tube site. Chest tube was on waterseal overnight and not on suction. O: AVSS, RA NAD RRR CTA Left chest tube- no airleak. Dressing clean A/P 73 y/o man s/p left lung biopsy who developed a post procedure pneumothorax requiring a chest tube and admission -CXR this AM shows very small residual pneumothorax. Patient was on waterseal overnight and not on suction. Given no air leak will clamp tube and repeat CXR in 2 hr. Main [facility] Interventional Radiology Time Spent With Patient Time: Total time managing care of this patient today ____ minutes.
--- NOTE | 2024-01-01 08:21 | HO.THORCON_ITS ---
History of Present Illness Consult details Consult date: 01/01/24 Narrative: Thoracic surgical consultation for left pneumothorax. Patient was status post IR biopsy of a suspicious left lung lesion and developed a pneumothorax. Had uneventful IR chest tube placed. At present, patient has no acute respiratory issues or complaints although had an episode of middle of the night which prompted a chest x-ray which was grossly within normal limits. Pleur-evac demonstrates skin output with no obvious air leak. [facility] Past Medical History Medical History History of fall Stroke Heart attack Prostate cancer Smoker COPD (chronic obstructive pulmonary disease) Surgical History Surgical History H/O colonoscopy History of hand surgery History of prostate surgery Social History Social History Patient Tobacco Use Status: Current everyday Tobacco user Tobacco use type: Cigarette Cigarettes Per Day: 3 Patient Interested in Nicotine Replacement: No Currently Displaying Signs/Symptoms of Drug Intoxication Withdrawal: No Advance Directives: No Advance Directives Information Provided: Yes Meds Allergies Allergy/AdvReac Type Severity Reaction Status Date / Time contac cold AdvReac Intermediate Nausea and Uncoded 12/31/23 09:15 Vomiting Active Medications: Current Medications Acetaminophen (Acetaminophen 325 Mg Tablet) 975 mg PO Q6H [facility] Last Admin: 01/01/24 06:24 Dose: 975 mg Albuterol/Ipratropium (Albuterol/Iprat 2.5/0.5mg 3 Ml Ampul.Neb) 3 ml INHALE RQ6H [facility] Last Admin: 01/01/24 05:40 Dose: Not Given Docusate Sodium (Docusate Sodium 100 Mg Capsule) 100 mg PO BID [facility] Last Admin: 12/31/23 22:40 Dose: Not Given Fluticasone/Vilanterol (Fluticasone/Vilanterol 100/25 Blst.W.Dev) 1 puff INHALE DAILY [facility] Last Admin: 01/01/24 08:14 Dose: 1 puff Furosemide (Furosemide 20 Mg Tablet) 20 mg PO DAILY [facility]; Protocol Nicotine (Nicotine 21 Mg Patch.Td24) 21 mg TRANSDERMA DAILY [facility] Oxycodone HCl (Oxycodone Hcl Immed Release 5 Mg Tablet) 5 mg PO Q6H PRN PRN Reason: Pain, Moderate(Pain Scale 4-6) Sodium Chloride (0.9 % Sodium Chloride Flush 3 Ml Syringe) 3 ml IVFLUSH [facility] Last Admin: 12/31/23 23:51 Dose: 3 ml Home Medications ?Medication ?Instructions ?Recorded ?Confirmed ?Last Taken ?Type aspirin 81 mg tablet,delayed 81 mg PO DAILY 08/01/20 12/31/23 Unknown History release atorvastatin 40 mg tablet 40 mg PO DAILY 08/01/20 12/31/23 Unknown History furosemide 20 mg tablet 20 mg PO DAILY 08/01/20 12/31/23 Unknown History Physical Exam 2 Vital Signs: Vital Signs: Last Vital Signs Temp 96.8 F 01/01/24 07:39 Pulse 72 01/01/24 08:15 Resp 16 01/01/24 08:15 BP 101/59 L 01/01/24 07:39 Pulse Ox 97 01/01/24 07:39 O2 Del Method Nasal Cannula 01/01/24 07:39 O2 Flow Rate 2 01/01/24 07:39 BMI result Body Mass Index 18.5 Chest: Other: Chest breath sounds bilaterally, chest tube site clean dry and intact. Results Labs 12/31/23 09:19 Labs: Abnormal lab results 12/31/23 01/01/24 Range/Units 09:19 06:18 MCV 98.5 H (80.0-98.0) fL MCH 33.3 H (27.0-33.0) pg Plt Count 153 L (160-400) X10*3/uL Lymph % (Auto) 15.9 L (20-40) % Eos % (Auto) 5.8 H (0-4) % Lymph # (Auto) 1.1 L (1.2-4.9) X10*3/uL VBG HCO3 29 H (22-26) mmol/L Short CBC 12/31/23 Range/Units 09:19 WBC 6.9 (4.8-10.8) X10*3/uL Hgb 15.9 (14.0-18.0) g/dl Hct 47.1 (42.0-52.0) % Plt Count 153 L (160-400) X10*3/uL All other labs normal. Assessment and Plan (1) Pneumothorax: Qualifiers: Pneumothorax type: postprocedural Qualified Code(s): J95.811 - Postprocedural pneumothorax Status: Acute (2) Left lower lobe pulmonary nodule: Status: Acute Plan Current plan is to keep chest tube to wall suction for today and repeat film early tomorrow morning. If this looks good, then we will place chest tube to water seal and then repeat film later in the day. To follow Procedures Date of Service Date of Service: 01/01/24
[2024-01-01] MEDS: Furosemide 20 MG TABLET PO (09:52)
--- NOTE | 2024-01-01 09:52 | MHC.CM.PN ---
IMM DELIVERED 01/01/24 AFTER CM HAD DELIVERED ZHENG 01/01/24 AND COMPLETED CM INTAKE, PT REPORTS HE LIVES W/ (HOWEVER NEVER ), PT IS FULLY INDEP W/ALL CARE, DENIES USE OF DME/SERVICES AND DENIES NEED ON DC. PT VERIFIES PCP ON FILE AND EDUCATED AND DECLINED TO COMPLETE A HCP PRIOR TO DC.
[2024-01-01] MEDS: Nicotine 21 MG PATCH.TD24 TRANSDERMA (09:53)
[2024-01-01] MEDS: 0.9 % Sodium Chloride Flush 3 ML SYRINGE IVFLUSH ×3 (09:53→23:19)
--- NOTE | 2024-01-01 13:55 | MHC.CLN ---
PT IS MODERATELY MALNOURISHED PT WITH MILDLY DEPLETED SUBCUTANEOUS FAT AND MUSCLE MASS WITH BMI 18.5 WITH 6% NONSIGNIFICANT WT LOSS X 1 YEAR DIET RX: REGULAR-APPROPRIATE RECOMMEND ADDING ENSURE BID TO INCREASE KCALS SUPP TO PROVIDE 700KCALS, 40G PROTEIN MONITOR PO INTAKE AND ENCOURAGE SUPPLEMENTS SEE ALSO FULL CLINICAL NUTRITION ASSESSMENT
--- NOTE | 2024-01-01 14:51 | P.PNIM_ITS ---
Subjective Subjective Date of Service: 01/01/24 Interval History: Follow-up for pneumothorax Review of Systems Patient denies any chest pain or shortness of breath, has mild soreness at the chest tube area. No fever or chills. Physical Exam 2 Vital Signs: Vital Signs: Last Vital Signs Temp 97 F 01/01/24 12:00 Pulse 77 01/01/24 12:00 Resp 16 01/01/24 12:00 BP 106/60 01/01/24 12:00 Pulse Ox 94 01/01/24 12:00 O2 Del Method Room Air 01/01/24 12:00 O2 Flow Rate 2 01/01/24 07:39 BMI result Body Mass Index 18.5 Appearance: Alert.? Oriented X3.? cvs: rrr, [id number] , no murmur res: air entry fair ,chest tube site clean clean and intact. abd no rebound or guarding ,nt, bs present. ext pulses present , no cyanosis . neuro: axo3 , nonfocal. Objective Data Active Medications Acetaminophen (Acetaminophen 325 Mg Tablet) 975 mg PO Q6H [facility] Last Admin: 01/01/24 12:11 Dose: 975 mg Documented By: PARAM Albuterol/Ipratropium (Albuterol/Iprat 2.5/0.5mg 3 Ml Ampul.Neb) 3 ml INHALE RQ6H [facility] Last Admin: 01/01/24 11:38 Dose: Not Given Documented By: AZRA Non-Admin Reason: Patient Refused Docusate Sodium (Docusate Sodium 100 Mg Capsule) 100 mg PO BID [facility] Last Admin: 01/01/24 09:53 Dose: Not Given Documented By: PARAM Non-Admin Reason: Patient Refused Fluticasone/Vilanterol (Fluticasone/Vilanterol 100/25 Blst.W.Dev) 1 puff INHALE DAILY [facility] Last Admin: 01/01/24 08:14 Dose: 1 puff Documented By: AZRA Furosemide (Furosemide 20 Mg Tablet) 20 mg PO DAILY [facility]; Protocol Last Admin: 01/01/24 09:52 Dose: 20 mg Documented By: PARAM Dextrose (D10) 250 mls @ 750 mls/hr IV ONCE ONE Stop: 01/01/24 15:19 Nicotine (Nicotine 21 Mg Patch.Td24) 21 mg TRANSDERMA DAILY [facility] Last Admin: 01/01/24 09:53 Dose: 21 mg Documented By: PARAM Oxycodone HCl (Oxycodone Hcl Immed Release 5 Mg Tablet) 5 mg PO Q6H PRN PRN Reason: Pain, Moderate(Pain Scale 4-6) Sodium Chloride (0.9 % Sodium Chloride Flush 3 Ml Syringe) 3 ml IVFLUSH QSHIFT [facility] Last Admin: 01/01/24 09:53 Dose: 3 ml Documented By: PARAM Labs 12/31/23 09:19 Labs: Laboratory Results - last 24 hr 01/01/24 01/01/24 06:15 06:18 Hold Purple Top SEE NOTE VBG pH 7.42 VBG pCO2 45 VBG pO2 61 VBG HCO3 29 H VBG O2 Saturation 91.0 VBG Base Excess 4.6 Assessment and Plan (1) Pneumothorax: Status: Acute (2) Left lower lobe pulmonary nodule: Status: Acute Plan 73 y/o m with copd and current smoker- has been participating in annual lung screening program,His last low-dose CT scan was on 11/26/2023, and it showed multiple pulmonary nodules, but 21 nodule which was of concern ,and a percutaneous needle biopsy was recommended.Patient came for elective lung nodule biopsy -s/p core biopsy left lung afterwards-developed -s/p core biopsy left lung afterwards-developed left side pneumothorax ( d/w IR PA) and s/p chest tube. Lung nodule biopsy- -s/p core biopsy left lung afterwards-developed left side pneumothorax ( d/w IR PA) and s/p chest tube pain management , bowel regimen repeat cxr-small pneumothroax thoracic eval noted- keep chest tube to wall suction for today and repeat film early tomorrow morning. hx of copd : stable continue home meds. current smoker: added nicotein patch. continue other home meds, hols asa since has chest tube today dvt : scd. ongoing hospitalisation need: postop pneumothorax after lung biopsy-need cxr follow in am ,tele monitering ,throacic surgery eval/chest tube management and pain control. Quality Stroke Does the patient have a stroke diagnosis?: No VTE Prior VTE?: No VTE Risk Level:: Medical - moderate - high VTE Device Contraindication: N/A - Device Ordered VTE Drug Contraindication: N/A - Med Ordered
[2024-01-01] MEDS: Docusate Sodium 100 MG CAPSULE PO (23:18)
[2024-01-02] VITALS (9 sets, daily range): BP systolic 115–128; BP diastolic 58–64; PULSE 68–96; RESP 16–20; TEMP 36.3–36.7; O2SAT 93–98
[2024-01-02] MEDS: Albuterol/Iprat 2.5/0.5MG 3 ML AMPUL.NEB INHALE ×2 (06:09→11:32)
[2024-01-02] MEDS: Acetaminophen 325 MG TABLET 975 MG PO ×2 (07:01→12:51)
--- NOTE | 2024-01-02 08:07 | PM.PNTS ---
Subjective Subjective Date of Service: 01/02/24 Interval history: No respiratory issues overnight. Chest tube; no output and no air leak demonstrated while on wall suction. A.m. chest x-ray no significant pneumothorax Physical Exam Vital Signs: Vital Signs: Last Vital Signs Temp 97.4 F 01/02/24 07:43 Pulse 87 01/02/24 07:43 Resp 19 01/02/24 07:43 BP 121/64 01/02/24 07:43 Pulse Ox 93 01/02/24 07:43 O2 Del Method Room Air 01/02/24 07:43 O2 Flow Rate 2 01/01/24 07:39 BMI result Body Mass Index 18.5 Chest: Other: Breath sounds bilaterally, consistent with COPD. Chest tube dressing clean dry and intact Procedures Date of Service Date of Service: 01/02/24 Progress Note: A&P Assessment and plan (1) Pneumothorax: Status: Acute (2) COPD (chronic obstructive pulmonary disease): Status: Acute (3) Left lower lobe pulmonary nodule: Status: Acute Plan Chest tube to water seal. Repeat chest x-ray later today. If lung is up and no air leak, consider chest tube removal. Time Spent With Patient Time: Total time managing care of this patient today ____ minutes. Quality Stroke Does the patient have a stroke diagnosis?: No VTE Prior VTE?: No VTE Risk Level:: Medical - moderate - high VTE Device Contraindication: N/A - Device Ordered VTE Drug Contraindication: N/A - Med Ordered
[2024-01-02] MEDS: Fluticasone/Vilanterol 100/25 BLST.W.DEV 1 PUFF INHALE (08:14)
[2024-01-02] MEDS: Nicotine 21 MG PATCH.TD24 TRANSDERMA (09:28)
[2024-01-02] MEDS: Docusate Sodium 100 MG CAPSULE PO (09:28)
[2024-01-02] MEDS: Furosemide 20 MG TABLET PO (09:28)
[2024-01-02] MEDS: 0.9 % Sodium Chloride Flush 3 ML SYRINGE IVFLUSH (09:29)
--- NOTE | 2024-01-02 17:01 | P.DS_ITS ---
DS: Providers Provider Date of Service: 01/02/24 Date of admission: 01/01/24 09:21 Date of discharge: 01/02/24 Primary care physician: Davey Vasquez MD Consults: 12/31/23 14:31 Consult to Thoracic Surgery Routine Consulting Provider: Amador Reid Reason for consultation: left lung bx, post procedure pneumothorax requiring chest tube Has provider been notified: No Attending physician on discharge: Ngozi Umana Discharging clinician: Ngozi Umana DS: Diagnosis Discharge Diagnosis (1) Pneumothorax: Status: Acute (2) COPD (chronic obstructive pulmonary disease): Status: Acute (3) Left lower lobe pulmonary nodule: Status: Acute DS: Summary Hospital Course Hospital Course: 73 y/o m with copd and current smoker- has been participating in annual lung screening program,His last low-dose CT scan was on 11/26/2023, and it showed multiple pulmonary nodules, but 21 nodule which was of concern ,and a percutaneous needle biopsy was recommended.Patient came for elective lung nodule biopsy -s/p core biopsy left lung afterwards-developed left side pneumothorax ( d/w IR PA) and s/p chest tube . He claims that his breathing status is stable and well controlled at this time.patient has some soarness at chest tube site . denies any chest pain or sob or abd pain or nausea or vomiting or abd pain. at baseline: Because of his advanced COPD he does get short of breath on walking around and also has mild intermittent cough. He uses Breo 100-251 inhalation daily, and Anoro Ellipta 1 inhalation daily He does have Combivent Respimat and uses it only p.r.n. when he gets acute shortness of breath. Hospital course: Lung nodule biopsy- -s/p core biopsy left lung afterwards-developed left side pneumothorax ( d/w IR PA) and s/p chest tube-Had pneumothorax -seems to be improved, chest tube removed, chest x-ray after chest tube seems similar-small tiny left-sided pneumothorax residual. Discussed with thoracic-patient is improving asymptomatic chest x-ray also discussed, thoracic recommended patient can go home if any new symptoms patient aware to come back. Follow-up pathology with Pulmonary and thoracic outpatient. plan: Keep dressing intact for 3 days. Follow-up pathology with Pulmonary and thoracic outpatient. Above management discussed with the patient detail length he understand and in agreement with the plan, time spent 35 minute. Time Attestation Total time managing care of this patient today: 35 mintues. Discharge Coordination Time (in mins): 35 min Quality: Safe Use of Opioids Does Pt have an Active Cancer Diagnosis on the Problem List?: No Quality: Stroke Does the patient have a stroke diagnosis?: No Physical Exam Vital Signs: Vital Signs: Last Vital Signs Temp 97.9 F 01/02/24 15:41 Pulse 96 01/02/24 15:41 Resp 16 01/02/24 15:41 BP 128/58 L 01/02/24 15:41 Pulse Ox 94 01/02/24 15:41 O2 Del Method Room Air 01/02/24 15:41 O2 Flow Rate 2 01/01/24 07:39 BMI result Body Mass Index 18.5 Appearance: Alert.? Oriented X3.? cvs: rrr, [id number] , no murmur res: clear to auscultation ,no rhonchii or wheezing abd: no rebound or guarding ,nt, bs present. ext pulses present , no cyanosis . neuro: axo3 , nonfocal. DS: Data Data Completed and Pending Completed studies during hospitalization [Text1]: Pending at discharge 12/31/23 11:37 Surgical Path [Surgical] [PTH] Routine Imaging Chest x-ray: Radiologist's impression: ITS Impressions Chest X-Ray 12/31/23 12:30 IMPRESSION: 1. Small to moderate left-sided pneumothorax. 2. Hyperinflation the bilateral lung agudelo. 3. Flattening the bilateral hemidiaphragms. Chest X-Ray 01/01/24 01:45 IMPRESSION: 1. Small residual left apical pneumothorax with pigtail chest tube in place. 2. Hyperinflated lung agudelo. 3. Left chest wall subcutaneous emphysema. Chest X-Ray 01/01/24 08:00 IMPRESSION: Stable findings. Chest X-Ray 01/02/24 06:05 IMPRESSION: Residual left apical pneumothorax Chest X-Ray 01/02/24 12:10 IMPRESSION: No significant interval change Discharge Plan Discharge Anticipated Discharge Date/Time: 01/02/24 16:56 Patient Disposition: Home, Self-Care Discharge Diagnosis: Pneumothorax post lung biopsy. Referrals: Davey Vasquez MD [Primary Care Provider] - 1 Week Amador Reid MD [Physician] - 1 Week Discharge Medications: Continued Combivent Respimat 20-100 mcg/actuation mist 1 puff PO Q6H Qty: 12 1RF Anoro Ellipta 62.5-25 mcg/actuation blister with device 1 ea PO DAILY Qty: 60 3RF furosemide 20 mg tablet 20 mg PO DAILY atorvastatin 40 mg tablet 40 mg PO DAILY aspirin 81 mg tablet,delayed release (DR/EC) 81 mg PO DAILY fluticasone furoate-vilanterol [Breo Ellipta] 100-25 mcg/dose blister with device 1 inh inhalation DAILY 30 Days Qty: 60 0RF Discharge Orders: Discharge Order (Routine); Ordered 01/02/24 Ordered By: Ngozi Umana Diet: Advance to usual diet Activity on Discharge: As tolerated Print Language: Spanish Activity Restrictions/Additional Instructions: Keep dressing intact for 3 days. Care Plan Goals: Had pneumothorax post lung biopsy required chest tube-seems to be improved, chest tube removed, chest x-ray after chest tube seems----? Patient will be going home. Follow-up with Pulmonary and thoracic outpatient. Health Concerns: as above. Plan of Treatment: as above. Assessment: as above. Patient Instructions: Traumatic Pneumothorax (GEN)
== END 2024-01-02 18:19 | disposition home or self-care (01) | DRG 201 ==
LOC: HO.SSSA 16:26 → HO.IMC 16:34
PROVIDERS: Internal Medicine; Physician Assistant Medical; Physician Assistant Surgical; Radiology Vascular & Interventional Radiology; Admitting Provider Internal Medicine; PCP Internal Medicine; Visit Provider Internal Medicine
PROC: 0BBJ3ZX Excision of Left Lower Lung Lobe, Percutaneous Approach, Diagnostic (ICD-10-PCS; principal; 2023-12-31 10:30)
DX: J95.811 Postprocedural pneumothorax (principal); J43.9 Emphysema, unspecified; F17.210 Nicotine dependence, cigarettes, uncomplicated; R91.1 Solitary pulmonary nodule; Z71.6 Tobacco abuse counseling; Z79.82 Long term (current) use of aspirin; Z79.51 Long term (current) use of inhaled steroids; Z79.899 Other long term (current) drug therapy
CPT/HCPCS: 32408; 32551; 36415; 49405; 71045; 82803; 85025; 85610; 85730; 88305; 88312; 93005; 99152; 99222; A7041; J2250; J2270; J2310; J3010; Q4186

== ENCOUNTER → 2023-12-31 16:09 | Outpatient (BNV) | payer MEDICARE, MEDICAID, SELFPAY | PROVIDERS: Admitting Provider Internal Medicine; PCP Internal Medicine; Visit Provider Internal Medicine | DX: J95.811 Postprocedural pneumothorax (principal); J43.9 Emphysema, unspecified; R91.1 Solitary pulmonary nodule | CPT/HCPCS: 99222; 99231; 99239 ==

== ENCOUNTER → 2023-12-31 16:09 | Outpatient (BNV) | payer MEDICARE, MEDICAID, SELFPAY | PROVIDERS: Admitting Provider Internal Medicine; PCP Internal Medicine; Visit Provider Surgery | DX: J95.811 Postprocedural pneumothorax (principal); J43.9 Emphysema, unspecified; R91.1 Solitary pulmonary nodule | CPT/HCPCS: 99222; 99232 ==

== ENCOUNTER 2024-01-08 08:41 | Outpatient (AMB) | payer MEDICARE, MEDICAID, SELFPAY ==
[2024-01-08 08:47] VITALS: BP 122/68; PULSE 68; O2SAT 96
--- NOTE | 2024-01-08 08:47 | MHC.OFFVIS ---
Vital Signs 01/08/24 08:47 BP 122/68 Blood Pressure Location Rt brachial Position Sitting Pulse 68 Pulse Oximetry (%) 96 Oxygen Delivery Method Room Air Intake Visit Reasons: lung bx results Intake Note: Patient here to discuss lung bx results. Patient c/o: feeling well. No concerns. Reports quit smoking. Oak Tanner Required: No Accompanied by: Self / Same As Patient Allergies contac cold Adverse Reaction (Intermediate, Uncoded 01/08/24 08:50) Nausea and Vomiting HPI Comments Details: Patient presents for follow-up status post recent hospitalization for lung biopsy with pneumothorax. Patient is doing well from a respiratory standpoint. He has no shortness of breath. He has discontinued smoking (or so he says) Biopsy results were negative for neoplasia/cancer. [facility] Medical History History of fall Stroke Heart attack Prostate cancer Smoker COPD (chronic obstructive pulmonary disease) Surgical History H/O colonoscopy History of hand surgery History of prostate surgery Social History Patient Tobacco Use Status: Current everyday Tobacco user Tobacco use type: Cigarette Cigarettes Per Day: 3 service: Yes Physical Exam Vital Signs: Last Vital Signs Pulse 68 01/08/24 08:47 BP 122/68 01/08/24 08:47 Pulse Ox 96 01/08/24 08:47 Oxygen Delivery Method Room Air 01/08/24 08:47 Chest Other: Chest tube site clean dry and intact. Breath sounds bilaterally consistent with significant COPD. Assessment & Plan Assessment & Plan (1) Pneumothorax: Code(s): J93.9 - Pneumothorax, unspecified Category: Surgical Qualifiers: Pneumothorax type: postprocedural Qualified Code(s): J95.811 - Postprocedural pneumothorax (2) Left lower lobe pulmonary nodule: Comment: (1.9 x 1.2 x 0.8 cm LLL nodule - on 11/26/23 LDCT) In addition he also has multiple nodules which are of his smaller size. Code(s): R91.1 - Solitary pulmonary nodule Category: Surgical Plan From a surgical perspective, patient is stable. He is scheduled to follow-up with his automatic glove turner and former in the near future. I strongly encouraged him to continue his smoking cessation. All questions answered. Patient will otherwise follow-up with me as needed. Coding Level of Care Code Est Pt Level 4 (03599) Diagnoses Postprocedural pneumothorax J95.811 Pneumothorax type: postprocedural Left lower lobe pulmonary nodule R91.1
== END 2024-01-08 08:54 | disposition home or self-care (01) ==
PROVIDERS: PCP Internal Medicine; Visit Provider Surgery
DX: J95.811 Postprocedural pneumothorax (principal); R91.1 Solitary pulmonary nodule
CPT/HCPCS: 99213

== ENCOUNTER → 2024-01-08 08:41 | Outpatient (BNVA) | payer MEDICARE, OTHER, SELFPAY | PROVIDERS: PCP Internal Medicine; Visit Provider Surgery | DX: J95.811 Postprocedural pneumothorax (principal); R91.1 Solitary pulmonary nodule | CPT/HCPCS: 99212 ==

== ENCOUNTER 2024-01-14 10:55 | Outpatient (AMB) | payer MEDICARE, MEDICAID, SELFPAY ==
[2024-01-14 11:26] VITALS: BP 94/60; PULSE 84; O2SAT 94; BMI 18.6
--- NOTE | 2024-01-14 11:26 | MHC.OFFVIS ---
Vital Signs 01/14/24 11:26 Height 5 ft 8 in Weight 122 lb 5.705 oz BMI 18.6 BP 94/60 Blood Pressure Location Lt brachial Position Sitting Pulse 84 Pulse Source Pulse Oximeter Pulse Oximetry (%) 94 Oxygen Delivery Method Room Air Intake Visit Reasons: copd Intake Note: pt is here for follow up and states he feels pretty good, he had to stay 2-3 days post biopsy due to chest tube. He stopped smoking! Sales And Events Coordinator Required: No Allergies contac cold Adverse Reaction (Intermediate, Uncoded 01/14/24 11:48) Nausea and Vomiting Medication List - Last Reconciled 01/14/24 by Solomon Peguero MD Anoro Ellipta 62.5-25 mcg/actuation (umeclidinium-vilanterol) 1 ea PO DAILY NS aspirin 81 mg PO DAILY atorvastatin 40 mg PO DAILY Combivent Respimat 20-100 mcg/actuation (ipratropium-albuterol) 1 puff PO Q6H NS fluticasone furoate-vilanterol 100-25 mcg/dose (Breo Ellipta) 1 inh inhalation DAILY 30 days furosemide 20 mg PO DAILY Do you need a note to return to daycare/school/sports/work: No HPI HPI copd: Details: 73 YEARS OLD GENTLEMAN WITH DIAGNOSIS OF CHRONIC OBSTRUCTIVE PULMONARY DISEASE, PAST HISTORY OF SMOKING. WAS FOUND TO HAVE A LARGE PULMONARY NODULE IN THE LEFT LOWER LOBE ALONG WITH SMALL PULMONARY NODULES. UNDERWENT PERCUTANEOUS NEEDLE BIOPSY ON 12/30 , FOLLOWED BY PNEUMOTHORAX, WHICH WAS TREATED BY PLACEMENT OF A CHEST CATHETER FOR 2 DAYS. THE PNEUMOTHORAX HAS RESOLVED COMPLETELY. HE HAS NO SIGNIFICANT , PAIN OR ANY INCREASE IN RESPIRATORY SYMPTOMS AFTER THE BIOPSY. CONTINUES TO USE HIS INHALERS. THE PATHOLOGY REPORT, INDICATES NON CASEATING GRANULOMATOUS DISEASE. TISSUE CULTURES FOR AFB, GMS, PAS . HAVE BEEN SENT AND RESULTS PENDING. [facility] Medical History History of fall Stroke Heart attack Prostate cancer Smoker COPD (chronic obstructive pulmonary disease) Surgical History H/O colonoscopy History of hand surgery History of prostate surgery Social History Patient Tobacco Use Status: Former Tobacco user Tobacco use type: Cigarette Cigarettes Per Day: 3 service: Yes Review of Systems Const All systems reviewed & are unremarkable except as noted in HPI and below Eyes Reports no additional complaints ENT Reports no additional complaints Card Denies chest pain, Denies irregular heart rhythm and Denies leg edema Resp Reports as per HPI GI Reports no additional complaints Reports no additional complaints Musc Reports no additional complaints Skin/Breast Reports system reviewed and no additional complaints, except as documented Neuro Reports no additional complaints Psych Reports no additional complaints Physical Exam Vital Signs: Last Vital Signs Pulse 84 01/14/24 11:26 BP 94/60 01/14/24 11:26 Pulse Ox 94 01/14/24 11:26 Oxygen Delivery Method Room Air 01/14/24 11:26 BMI result Body Mass Index 18.6 Const General: comfortable, no acute distress, alert and awake Orientation/consciousness: patient oriented x3 HEENT Head: Yes normal to inspection General nose exam: No nasal polyps present and No nasal discharge present Face and sinus: Yes sinuses nontender Mouth: oropharynx normal Throat: Yes posterior oropharynx normal Eyes General: appearance normal, both eyes and all related structures Neck Neck: Yes normal visual inspection, Yes no lymphadenopathy, Yes trachea midline and Yes no JVD Thyroid: Thyroid normal Chest Chest palpation & inspection: normal inspection of the chest, normal palpation of entire chest wall and no tenderness Resp Other: Percussion note resonant, breath sounds are very distant with prolonged expiratory phase. No wheezes rhonchi or crepitations are heard. Cardio Palpation: normal PMI Rate: regular rate Rhythm: regular rhythm Heart sounds: no gallops and no murmurs GI Palpation (GI): Soft to palpation, nontender, No hepatosplenomegaly present and no masses Auscultation: normal bowel sounds Back/Spine/Pelvis Thoracic/Lumbar Spine: thoracic and lumbar spine normal to inspection Skin General skin exam: no rashes or lesions noted and dry skin Neuro General: patient oriented x3 and no focal motor deficits Cranial nerves: Yes CN's II-XII intact bilaterally Extrem General: Yes normal to inspection, Yes no clubbing, cyanosis or edema and Yes no calf tenderness Psych Appearance: grossly normal Speech and movement: Normal speech and movement present Assessment & Plan Assessment & Plan (1) Smoker: Comment: STILL SMOKING 3-4 CIGARETTES A DAY . Had a good discussion with him. I told him that he needs to quit smoking completely and sooner the better. Risks of continued smoking explained to him. He does not seem to be motivated to quit completely, I urged him to at least cut down to 5 cigarettes a day. He is participating in Annual lung screening program. Code(s): F17.200 - Nicotine dependence, unspecified, uncomplicated Category: Social Hx Plan: HE CLAIMS THAT CURRENTLY HE IS SMOKING ONLY 3 CIGARETTES A DAY. I STRESS THAT HE SHOULD NOT INCREASE THE NUMBER OF CIGARETTES, STILL TRY TO QUIT COMPLETELY IF POSSIBLE. (2) COPD (chronic obstructive pulmonary disease): Comment: He does have rather severe degree of chronic obstructive pulmonary disease. It is fairly well controlled at this time, with the current regimen . Code(s): J44.9 - Chronic obstructive pulmonary disease, unspecified Category: Medical Qualifiers: COPD type: emphysema Emphysema type: unspecified Qualified Code(s): J43.9 - Emphysema, unspecified Plan: CONT. ANORO ELLIPTA 1 INHALATION DAILY BREO 100-251 INHALATION DAILY. COMBIVENT RESPIMAT 1 INHALATION Q 6 HOURS P.R.N. (3) Left lower lobe pulmonary nodule: Comment: (1.9 x 1.2 x 0.8 cm LLL nodule -S/P s/p PERCUTANEOUS NEEDLE BIOPSY, PATHOLOGY REPORT: NONSPECIFIC GRANULOMA . Code(s): R91.1 - Solitary pulmonary nodule Category: Surgical Plan: TISSUE CULTURES FOR AFB, GMS, PAS PENDING I WILL ORDER T-SPOT TEST Plan ABOVE Orders: Orders T Spot TB Today R91.1 - Solitary pulmonary nodule Coding Level of Care Code Est Pt Level 4 (01487) Diagnoses Smoker F17.200 Pulmonary emphysema, unspecified emphysema type J43.9 COPD type: emphysema Emphysema type: unspecified Left lower lobe pulmonary nodule R91.1
--- NOTE | 2024-01-14 12:01 | MHC.OFFVIS ---
Vital Signs 01/14/24 11:26 Height 5 ft 8 in Weight 122 lb 5.705 oz BMI 18.6 BP 94/60 Blood Pressure Location Lt brachial Position Sitting Pulse 84 Pulse Source Pulse Oximeter Pulse Oximetry (%) 94 Oxygen Delivery Method Room Air Intake Visit Reasons: copd Allergies contac cold Adverse Reaction (Intermediate, Uncoded 01/14/24 11:48) Nausea and Vomiting Medication List - Last Reconciled 01/14/24 by Solomon Peguero MD Anoro Ellipta 62.5-25 mcg/actuation (umeclidinium-vilanterol) 1 ea PO DAILY NS aspirin 81 mg PO DAILY atorvastatin 40 mg PO DAILY Combivent Respimat 20-100 mcg/actuation (ipratropium-albuterol) 1 puff PO Q6H NS fluticasone furoate-vilanterol 100-25 mcg/dose (Breo Ellipta) 1 inh inhalation DAILY 30 days furosemide 20 mg PO DAILY PFSH Medical History History of fall Stroke Heart attack Prostate cancer Smoker COPD (chronic obstructive pulmonary disease) Surgical History H/O colonoscopy History of hand surgery History of prostate surgery Social History Patient Tobacco Use Status: Former Tobacco user Tobacco use type: Cigarette Cigarettes Per Day: 3 service: Yes Physical Exam Vital Signs: Last Vital Signs Pulse 84 01/14/24 11:26 BP 94/60 01/14/24 11:26 Pulse Ox 94 01/14/24 11:26 Oxygen Delivery Method Room Air 01/14/24 11:26 BMI result Body Mass Index 18.6 Quality Reporting (2020) Adult ([facility] 138/09/12/68) Body Mass Index: 18.6 Assessment & Plan Assessment & Plan (1) Smoker: Comment: STILL SMOKING 3-4 CIGARETTES A DAY . Had a good discussion with him. I told him that he needs to quit smoking completely and sooner the better. Risks of continued smoking explained to him. He does not seem to be motivated to quit completely, I urged him to at least cut down to 5 cigarettes a day. He is participating in Annual lung screening program. Code(s): F17.200 - Nicotine dependence, unspecified, uncomplicated Category: Social Hx Plan: HAD A GOOD DISCUSSION AND I TOLD HIM THAT HE SHOULD TRY TO STOP COMPLETELY (2) COPD (chronic obstructive pulmonary disease): Comment: He does have rather severe degree of chronic obstructive pulmonary disease. It is fairly well controlled at this time, with the current regimen . Code(s): J44.9 - Chronic obstructive pulmonary disease, unspecified Category: Medical Qualifiers: COPD type: emphysema Emphysema type: unspecified Qualified Code(s): J43.9 - Emphysema, unspecified (3) Left lower lobe pulmonary nodule: Comment: (1.9 x 1.2 x 0.8 cm LLL nodule -S/P s/p PERCUTANEOUS NEEDLE BIOPSY, PATHOLOGY REPORT: NONSPECIFIC GRANULOMA . Code(s): R91.1 - Solitary pulmonary nodule Category: Surgical Orders: Orders T Spot TB Today R91.1 - Solitary pulmonary nodule Coding Level of Care Code Est Pt Level 4 (89749) Diagnoses Smoker F17.200 Pulmonary emphysema, unspecified emphysema type J43.9 COPD type: emphysema Emphysema type: unspecified Left lower lobe pulmonary nodule R91.1
== END 2024-01-14 11:45 | disposition home or self-care (01) ==
PROVIDERS: PCP Internal Medicine; Visit Provider Internal Medicine
DX: F17.200 Nicotine dependence, unspecified, uncomplicated (principal); J43.9 Emphysema, unspecified; R91.1 Solitary pulmonary nodule
CPT/HCPCS: 99214

== ENCOUNTER → 2024-01-14 10:55 | Outpatient (BNVA) | payer MEDICARE, MEDICAID, SELFPAY | PROVIDERS: PCP Internal Medicine; Visit Provider Internal Medicine | DX: J43.9 Emphysema, unspecified (principal); R91.1 Solitary pulmonary nodule; F17.210 Nicotine dependence, cigarettes, uncomplicated | CPT/HCPCS: 99212 ==

== ENCOUNTER 2024-01-27 09:20 | Outpatient (REF) | payer MEDICARE, MEDICAID, SELFPAY ==
[2024-01-30 02:18] LABS: TS Negative Control Passed; TS Panel A 0; TS Panel B 0; TS Positive Control Passed; TSpotTB Negative (Negative)
== END 2024-01-27 09:21 | disposition home or self-care (01) ==
LOC: HO.LAB 09:20
PROVIDERS: PCP Internal Medicine; Visit Provider Internal Medicine
DX: R91.1 Solitary pulmonary nodule (principal)
CPT/HCPCS: 36415; 86481

== ENCOUNTER 2024-04-08 08:51 | Outpatient (REF) | payer MEDICARE, MEDICAID, SELFPAY ==
--- NOTE | ~2024-04-08 | CT_ITS ---
EXAMINATION: CT LOW-DOSE SCREENING CHEST WITHOUT CONTRAST CLINICAL INFORMATION: Nicotine dependence, unspecified, uncomplicated. Former smoker. The patient has a 58 pack-year history of smoking, having quit 3 months ago. COMPARISON: X-ray chest 01/02/2024. CT chest 11/26/2023; Multiple new pulmonary nodules. Suspicious for malignancy. TECHNIQUE: Multidetector volumetric CT imaging of the chest is performed on a Siemens SOMATOM Definition scanner without contrast using low dose technique. Additional 2D coronal and sagittal reformatted images and axial 3D maximum intensity projection (MIP) images are generated on the CT workstation. This CT examination was performed using dose optimization techniques as appropriate, variously including the following: *Automated exposure control *Adjustment of mA and/or kV according to patient size (this includes techniques or standardized protocols for targeted exams where dose is matched to indication/reason for exam; i.e. extremities or head) *Use of iterative reconstruction technique TOTAL EXAM DLP: 38 mGy-cm. CTDIvol: 1.05 mGy. FINDINGS: PULMONARY NODULES: Right upper lobe pulmonary nodule is smaller, previously measuring 7.2 x 6.1 mm, now measuring 5.1 x 5.4 mm (5:77, compare prior 5:71). Left upper lobe nodule previously measured 5.2 mm, now measures 4.2 mm (5:151, compare prior 5:146). The largest previously seen pulmonary nodule in the left lower lobe had measured 18.9 x 11.7 mm, currently measures 10.0 x 6.6 mm (5:244, compare prior 5:239). Because of its shape, exact measurements are difficult but this has certainly decreased in size. LUNGS: Lungs bilaterally symmetrically expanded. Marked emphysematous changes are again seen along with diffuse mild bronchial thickening without bronchiectasis. The. No effusion or pneumothorax. Central airways patent. MEDIASTINUM: No mediastinal, hilar or axillary adenopathy or free fluid collection. CORONARY ARTERY CALCIFICATION: Present. THYROID GLAND: Unremarkable to the extent seen. CARDIOVASCULAR STRUCTURES: Aortic and heart size normal. No pericardial effusion. CHEST WALL/AXILLA: Unremarkable. UPPER ABDOMEN: Included portions of the solid organs in the upper abdomen unremarkable on noncontrast imaging. OSSEOUS STRUCTURES: No suspicious focal findings. CT/CT lung screen follow up IMPRESSION: Pulmonary nodules have decreased in size. The largest pulmonary nodule had been biopsied previously. Please correlate with that pathologic report. ASSESSMENT: 1. Lung-RADS Category 3: Probably benign findings. For a stepped approach, I would recommend follow up in 6 months time. 2. Lung-RADS Category S: Negative. There are no clinically significant or potentially clinically significant findings not related to the lungs requiring urgent additional evaluation. RECOMMENDATION: A 6-month follow up low-dose lung CT scan is recommended. An order for CT LUNG CANCER SCREENING SHORT INTERVAL FOLLOWUP ([id number]) can be placed. If the findings are stable, follow up in one year can be performed. Electronically signed by: Dennis Sheppard MD 06/02/2024 02:32 PM FAISAL
== END 2024-04-08 08:52 | disposition home or self-care (01) ==
LOC: HO.CT 08:51
PROVIDERS: PCP Internal Medicine; Visit Provider Physician Assistant Medical
DX: R91.1 Solitary pulmonary nodule (principal); F17.200 Nicotine dependence, unspecified, uncomplicated
CPT/HCPCS: 71250

== ENCOUNTER 2024-04-22 08:24 | Outpatient (REF) | payer MEDICARE, MEDICAID, SELFPAY ==
[2024-04-22 14:44] LABS: MANUAL DIFF FLAG NO
[2024-04-22 14:48] LABS: Basophils Percent Auto 0.7 % (0-2); Eosinophils Absolute Auto 0.3 X10*3/uL (0.0-0.4); Eosinophils Percent Auto 5.3 % (0-4); Hematocrit 50.8 % (42.0-52.0); Hemoglobin 16.3 g/dl (14.0-18.0); Imm Gran Abs Auto 0.02 X10*3/uL (0.00-0.03); Imm Gran Pct Auto 0.3 % (0.0-0.4); Lymphocytes Percent Auto 15.8 % (20-40); Mean Corpuscular HGB Conc 32.1 g/dl (31.0-36.0); Mean Corpuscular Hemoglobin 32.1 pg (27.0-33.0); Mean Platelet Volume 12.7 fL (9.4-12.4); Monocytes Absolute Auto 0.5 X10*3/uL (0.1-1.2); Monocytes Percent Auto 8.6 % (2-11); Neutrophils Absolute Auto 4.2 x10*3/uL (2.0-8.3); Neutrophils Percent Auto 69.3 % (45-73); Platelet Count 175 X10*3/uL (160-400); Red Blood Count 5.08 X10*6/uL (4.60-5.80); Red Cell Distribution Width 12.9 % (11.0-16.0); White Blood Count 6.1 X10*3/uL (4.8-10.8)
[2024-04-22 15:22] LABS: Alanine Aminotransferase 34 U/L (0-40); Albumin Level 4.7 g/dL (3.5-5.0); Alkaline Phosphatase 121 U/L (39-117); Anion Gap 16 (12-20); Aspartate Amino Transferase 32 U/L (5-37); Blood Urea Nitrogen 20 mg/dL (9-16); Carbon Dioxide 28 mmol/L (22-29); Chloride 104 mmol/L (96-108); Cholesterol 140 mg/dL (<200); Estimated Glomerular Filt Rate > 60; Glucose Random 91 mg/dL (60-115); HDL Cholesterol 59 mg/dL (>40); LDL Cholesterol Calculated 72 mg/dL (<100); Potassium 4.5 mmol/L (3.3-5.1); Sodium 143 mmol/L (135-145); Triglycerides 49 mg/dL (<150)
[2024-04-22 15:28] LABS: TSH reflex Free T4 1.46 uIU/mL (0.32-4.0)
[2024-04-23 08:45] LABS: ~HepC Num1 0.14 S/CO (0.00-0.79); ~Hepatitis C Antibody Nonreactive (Nonreactive)
== END 2024-04-22 08:25 | disposition home or self-care (01) ==
LOC: HO.CHCLDS 08:24
PROVIDERS: Visit Provider Internal Medicine
DX: J44.9 Chronic obstructive pulmonary disease, unspecified (principal); I10 Essential (primary) hypertension; I63.9 Cerebral infarction, unspecified
CPT/HCPCS: 36415; 80053; 80061; 84443; 85025; 86803

== ENCOUNTER 2024-05-05 09:05 | Outpatient (REF) | payer MEDICARE, MEDICAID, SELFPAY ==
--- NOTE | ~2024-05-05 | US_ITS ---
EXAMINATION: US ABDOMEN COMPLETE CLINICAL INFORMATION: Elevated alkaline phosphatase. COMPARISON: Ultrasound abdominal aorta 05/21/2022. TECHNIQUE: Real-time imaging of the abdominal viscera. Technically difficult study secondary to bowel gas and motion artifact due to labored breathing from emphysema. FINDINGS: PANCREAS: Obscured by overlying bowel gas. ABDOMINAL AORTA: Obscured by overlying bowel gas. INFERIOR VENA CAVA: Visualized portions are normal. LIVER: The liver is normal in size. Nodular liver contour. Heterogeneous and coarsened echotexture. There is no intrahepatic biliary duct dilatation seen. Left hepatic lobe 1.1 cm cyst GALLBLADDER: Normal. The gallbladder is physiologically distended without evidence of stones, sludge, polyps, wall thickening or pericholecystic fluid. COMMON BILE DUCT: Normal in caliber measuring 0.3 cm in diameter. RIGHT KIDNEY: Normal. No hydronephrosis. No renal calculi or focal parenchymal lesions. The kidney measures 9.2 cm in maximum dimension. LEFT KIDNEY: Normal. No hydronephrosis. No renal calculi or focal parenchymal lesions. The kidney measures 9.6 cm in maximum dimension. SPLEEN: Not visualized. FREE FLUID: None. US/US abdomen complete IMPRESSION: Cirrhotic liver. No focal hepatic lesion. Electronically signed by: Sarah Tafoya MD 05/19/2024 05:19 PM EDT
== END 2024-05-05 09:06 | disposition home or self-care (01) ==
LOC: HO.US 09:05
PROVIDERS: PCP Internal Medicine; Visit Provider Internal Medicine
DX: R74.8 Abnormal levels of other serum enzymes (principal)
CPT/HCPCS: 76700

== ENCOUNTER 2024-05-19 09:51 | Outpatient (AMB) | payer MEDICARE, MEDICAID, SELFPAY ==
[2024-05-19 09:57] VITALS: BP 118/64; PULSE 85; O2SAT 97; BMI 20.1
--- NOTE | 2024-05-19 09:57 | A.OFFVIS_ITS ---
Vital Signs 05/19/24 09:57 Height 5 ft 8 in Weight 132 lb 4.438 oz BMI 20.1 BP 118/64 Blood Pressure Location Lt brachial Position Sitting Pulse 85 Pulse Source Pulse Oximeter Pulse Oximetry (%) 97 Oxygen Delivery Method Room Air Intake Visit Reasons: COPD Intake Note: pt is here for follow up and states his breathing is always not good, and he coughing with production yellow/brown/clear. Hearing And Speech Assistant Required: No Allergies contac cold Adverse Reaction (Intermediate, Uncoded 05/19/24 11:36) Nausea and Vomiting Medication List - Last Reconciled 05/19/24 by Solomon Peguero MD Anoro Ellipta 62.5-25 mcg/actuation (umeclidinium-vilanterol) 1 ea PO DAILY NS aspirin 81 mg PO DAILY atorvastatin 40 mg PO DAILY Combivent Respimat 20-100 mcg/actuation (ipratropium-albuterol) 1 puff PO Q6H NS fluticasone furoate-vilanterol 100-25 mcg/dose (Breo Ellipta) 1 inh inhalation DAILY 30 days furosemide 20 mg PO DAILY Do you need a note to return to daycare/school/sports/work: No HPI HPI COPD: Details: HUSSAIN IS 73 YEARS OLD VERY PLEASANT GENTLEMAN WHO COMES FOR FOLLOW-UP AFTER 4 MONTHS HE CLAIMS THAT HIS BREATHING IS BETTER, HE HAS MILD TO MODERATE DEGREE OF SHORTNESS OF BREATH ON EXERTION. HAS MILD INTERMITTENT COUGH WITHOUT MUCH EXPECTORATION. THE DOES GET SHORT OF BREATH WHEN HE WALKS FAST OR CLIMBS STAIRS. HE CLAIMS THAT HE IS SMOKING NO MORE THAN 2 OR 3 CIGARETTES A DAY, AND ACTUALLY FOR THE LAST FEW WEEKS HE HAS QUIT COMPLETELY. CONTINUES TO USE HIS ANORO AND BREO ELLIPTA ONCE A DAY EACH AND USES COMBIVENT RESPIMAT P.R.N. FOR ACUTE ATTACKS. [facility] Medical History History of fall Stroke Heart attack Prostate cancer Smoker COPD (chronic obstructive pulmonary disease) Surgical History H/O colonoscopy History of hand surgery History of prostate surgery Social History Patient Tobacco Use Status: Former Tobacco user Tobacco use type: Cigarette Cigarettes Per Day: 3 service: Yes Review of Systems Const All systems reviewed & are unremarkable except as noted in HPI and below Eyes Reports no additional complaints ENT Reports no additional complaints Card Denies chest pain, Denies irregular heart rhythm and Denies leg edema Resp Reports as per HPI GI Reports no additional complaints Reports no additional complaints Musc Reports no additional complaints Skin/Breast Reports system reviewed and no additional complaints, except as documented Neuro Reports no additional complaints Psych Reports no additional complaints Physical Exam Vital Signs: Last Vital Signs Pulse 85 05/19/24 09:57 BP 118/64 05/19/24 09:57 Pulse Ox 97 05/19/24 09:57 Oxygen Delivery Method Room Air 05/19/24 09:57 BMI result Body Mass Index 20.1 Const General: comfortable, no acute distress, alert and awake Orientation/consciousness: patient oriented x3 HEENT Head: Yes normal to inspection General nose exam: No nasal polyps present and No nasal discharge present Face and sinus: Yes sinuses nontender Mouth: oropharynx normal Throat: Yes posterior oropharynx normal Eyes General: appearance normal, both eyes and all related structures Neck Neck: Yes normal visual inspection, Yes no lymphadenopathy, Yes trachea midline and Yes no JVD Thyroid: Thyroid normal Chest Chest palpation & inspection: normal inspection of the chest, normal palpation of entire chest wall and no tenderness Resp Other: Percussion note resonant, breath sounds are very distant with prolonged expiratory phase. No wheezes rhonchi or crepitations are heard. Cardio Palpation: normal PMI Rate: regular rate Rhythm: regular rhythm Heart sounds: no gallops and no murmurs GI Palpation (GI): Soft to palpation, nontender, No hepatosplenomegaly present and no masses Auscultation: normal bowel sounds Back/Spine/Pelvis Thoracic/Lumbar Spine: thoracic and lumbar spine normal to inspection Skin General skin exam: no rashes or lesions noted and dry skin Neuro General: patient oriented x3 and no focal motor deficits Cranial nerves: Yes CN's II-XII intact bilaterally Extrem General: Yes normal to inspection, Yes no clubbing, cyanosis or edema and Yes no calf tenderness Psych Appearance: grossly normal Speech and movement: Normal speech and movement present Assessment & Plan Assessment & Plan (1) COPD (chronic obstructive pulmonary disease): Comment: He does have rather severe degree of chronic obstructive pulmonary disease. It is fairly well controlled at this time, with the current regimen . Code(s): J44.9 - Chronic obstructive pulmonary disease, unspecified Category: Medical Qualifiers: COPD type: emphysema Emphysema type: unspecified Qualified Code(s): J43.9 - Emphysema, unspecified Plan: CONTINUE BREO ELLIPTA 100-251 INHALATION DAILY ANORO ELLIPTA 1 INHALATION DAILY COMBIVENT RESPIMAT Q 6 HOURS P.R.N. FOR ACUTE ASTHMA ATTACKS (2) Smoker: Comment: STILL SMOKING 3-4 CIGARETTES A DAY BUT CLAIMS THAT FOR THE LAST FEW WEEKS HE HAS NOT SMOKED AT ALL. HE WAS COMMENDED FOR STOPPING TO SMOKE COMPLETELY. Code(s): F17.200 - Nicotine dependence, unspecified, uncomplicated Category: Social Hx Plan: ADVISED AND ENCOURAGED NOT TO GO BACK TO SMOKING. (3) Left lower lobe pulmonary nodule: Comment: (1.9 x 1.2 x 0.8 cm LLL nodule -S/P s/p PERCUTANEOUS NEEDLE BIOPSY, PATHOLOGY REPORT: NONSPECIFIC GRANULOMA ., BENIGN . Code(s): R91.1 - Solitary pulmonary nodule Category: Surgical Plan: WILL CONTINUE WITH ANNUAL LUNG SCREENING PROGRAM. Coding Level of Care Code Est Pt Level 3 (25432) Diagnoses Pulmonary emphysema, unspecified emphysema type J43.9 COPD type: emphysema Emphysema type: unspecified Smoker F17.200 Left lower lobe pulmonary nodule R91.1
== END 2024-05-19 10:36 | disposition home or self-care (01) ==
LOC: HO.HPS 09:52
PROVIDERS: PCP Internal Medicine; Visit Provider Internal Medicine
DX: J43.9 Emphysema, unspecified (principal); F17.200 Nicotine dependence, unspecified, uncomplicated; R91.1 Solitary pulmonary nodule
CPT/HCPCS: 99213

== ENCOUNTER → 2024-05-19 09:51 | Outpatient (BNVA) | payer MEDICARE, MEDICAID, SELFPAY | PROVIDERS: PCP Internal Medicine; Visit Provider Internal Medicine | DX: J43.9 Emphysema, unspecified (principal); R91.1 Solitary pulmonary nodule; F17.210 Nicotine dependence, cigarettes, uncomplicated | CPT/HCPCS: 99212 ==

== ENCOUNTER 2024-09-29 10:31 | Outpatient (AMB) | payer MEDICARE, MEDICAID, SELFPAY ==
[2024-09-29 10:51] VITALS: BP 120/68; PULSE 99; O2SAT 92; BMI 22.1
--- NOTE | 2024-09-29 10:51 | A.OFFVIS_ITS ---
Vital Signs 09/29/24 10:51 Height 5 ft 8 in Weight 145 lb 8.081 oz BMI 22.1 BP 120/68 Blood Pressure Location Lt brachial Position Sitting Pulse 99 Pulse Source Pulse Oximeter Pulse Oximetry (%) 92 Oxygen Delivery Method Room Air Intake Visit Reasons: copd Intake Note: pt is here for follow up and states his breahing is not good with exertion, cold air is not good, and a lot of coughing in am with a lot of production, some coughing throughout the day. having low dose ct scan 6 mo f/u on 10/05/24, Plumber Cub Required: No Allergies contac cold Adverse Reaction (Intermediate, Uncoded 09/29/24 11:16) Nausea and Vomiting Medication List - Last Reconciled 09/29/24 by Solomon Peguero MD Anoro Ellipta 62.5-25 mcg/actuation (umeclidinium-vilanterol) 1 ea PO DAILY NS aspirin 81 mg PO DAILY atorvastatin 40 mg PO DAILY Combivent Respimat 20-100 mcg/actuation (ipratropium-albuterol) 1 puff PO Q6H NS fluticasone furoate-vilanterol 100-25 mcg/dose (Breo Ellipta) 1 inh inhalation DAILY 30 days furosemide 20 mg PO DAILY Do you need a note to return to daycare/school/sports/work: No HPI HPI copd: Details: 74 YEARS OLD GENTLEMAN IS HERE FOR FOLLOW-UP OF HIS ADVANCED COPD. HE HAS BEEN SMOKING THROUGHOUT HIS ADULT LIFE, ON HIS LAST VISIT SAT THAT HE SMOKES ONLY 2 OR 3 CIGARETTES A DAY. TODAY HE IS TELLING ME THAT HE DOES NOT SMOKE ANYMORE. HIS COMPLAINT IS THAT HE REMAINS CONGESTED MOST OF THE TIME AND CAN NOT CLEAR ENOUGH MUCUS. ALSO HE GETS SHORT OF BREATH ON MINIMAL WALKING. HE HAS HAD NO RECENT RESPIRATORY INFECTION. [facility] Medical History (Updated 09/29/24 @ 11:24 by Solomon Peguero MD) Hypoxemia Nicotine dependence, cigarettes, uncomplicated History of fall Stroke Heart attack Prostate cancer Smoker COPD (chronic obstructive pulmonary disease) Surgical History (Updated 09/29/24 @ 11:21 by Solomon Peguero MD) H/O colonoscopy History of hand surgery History of prostate surgery Social History Patient Tobacco Use Status: Former Tobacco user Tobacco use type: Cigarette Cigarettes Per Day: 3 service: Yes Review of Systems Const All systems reviewed & are unremarkable except as noted in HPI and below Eyes Reports no additional complaints ENT Reports no additional complaints Card Denies chest pain, Denies irregular heart rhythm and Denies leg edema Resp Reports as per HPI GI Reports no additional complaints Reports no additional complaints Musc Reports no additional complaints Skin/Breast Reports system reviewed and no additional complaints, except as documented Neuro Reports no additional complaints Psych Reports no additional complaints Physical Exam Vital Signs: Last Vital Signs Pulse 99 09/29/24 10:51 BP 120/68 09/29/24 10:51 Pulse Ox 92 09/29/24 10:51 Oxygen Delivery Method Room Air 09/29/24 10:51 BMI result Body Mass Index 22.1 Const General: comfortable, no acute distress, alert and awake Orientation/consciousness: patient oriented x3 HEENT Head: Yes normal to inspection General nose exam: No nasal polyps present and No nasal discharge present Face and sinus: Yes sinuses nontender Mouth: oropharynx normal Throat: Yes posterior oropharynx normal Eyes General: appearance normal, both eyes and all related structures Neck Neck: Yes normal visual inspection, Yes no lymphadenopathy, Yes trachea midline and Yes no JVD Thyroid: Thyroid normal Chest Chest palpation & inspection: normal inspection of the chest, normal palpation of entire chest wall and no tenderness Resp Other: Percussion note resonant, breath sounds are very distant with prolonged expiratory phase. No wheezes rhonchi or crepitations are heard. Cardio Palpation: normal PMI Rate: regular rate Rhythm: regular rhythm Heart sounds: no gallops and no murmurs GI Palpation (GI): Soft to palpation, nontender, No hepatosplenomegaly present and no masses Auscultation: normal bowel sounds Back/Spine/Pelvis Thoracic/Lumbar Spine: thoracic and lumbar spine normal to inspection Skin General skin exam: no rashes or lesions noted and dry skin Neuro General: patient oriented x3 and no focal motor deficits Cranial nerves: Yes CN's II-XII intact bilaterally Extrem General: Yes normal to inspection, Yes no clubbing, cyanosis or edema and Yes no calf tenderness Psych Appearance: grossly normal Speech and movement: Normal speech and movement present Results Reviewed Results Reviewed: 6 MINUTES WALK TEST Assessment & Plan Assessment & Plan (1) COPD (chronic obstructive pulmonary disease): Comment: He does have rather severe degree of chronic obstructive pulmonary disease. It is fairly well controlled at this time, with the current regimen but he is still complaining of lot of mucus. And urge to clear it. Complaining of shortness of breath on minimal exertion.. Code(s): J44.9 - Chronic obstructive pulmonary disease, unspecified Category: Medical Qualifiers: COPD type: emphysema Emphysema type: unspecified Qualified Code(s): J43.9 - Emphysema, unspecified Plan: Continue Anoro Ellipta 1 inhalation daily Continue to use Breo 100-251 inhalation daily Combivent Respimat 1 inhalation Q 6 hours p.r.n.. Also use Mucinex 600 mg b.i.d. (2) Smoker: Comment: STILL SMOKING 3-4 CIGARETTES A DAY BUT CLAIMS THAT FOR THE LAST FEW WEEKS HE HAS NOT SMOKED AT ALL. Code(s): F17.200 - Nicotine dependence, unspecified, uncomplicated Category: Social Hx Plan: Commended for quitting smoking completely. And stressed that he should not go back. to smoking at all (3) Left lower lobe pulmonary nodule: Comment: (1.9 x 1.2 x 0.8 cm LLL nodule -S/P s/p PERCUTANEOUS NEEDLE BIOPSY, PATHOLOGY REPORT: NONSPECIFIC GRANULOMA ., BENIGN . HE IS SCHEDULED TO [address] FOLLOW-UP WITH CT SCAN, Code(s): R91.1 - Solitary pulmonary nodule Category: Surgical Plan: CONTINUE FOLLOW-UP WITH CT SCAN , . AT LEAST ONCE A YEAR (4) Hypoxemia: Comment: PATIENT WALKED INTO THE OFFICE AND HIS O2 SAT WAS LOW, 86 % IT TOOK SEVERAL MINUTES TO COME UP TO NORMAL LEVEL. 6 MINUTES WALK TEST DONE, DESATURATES AFTER WALKING 2-3 MINUTES DOWN TO 86%. STARTED, ON O2 2 UPPER MINUTE AND BROUGHT HIS O2 SAT ABOVE 90% Code(s): R09.02 - Hypoxemia Category: Medical Plan: EXPLAINED TO THE PATIENT THAT HE HAS COME TO A STAGE THAT HE NEEDS O2 , HE SHOULD USED O2 2 L/MINUTE AT NIGHT AND P.R.N. DURING THE DAYTIME HE DOES NEED TO USE O2 2 L/MINUTE WITH ANY PHYSICAL ACTIVITY AND WHEN GOING OU TDOORS. HE IS ALREADY TALKING ABOUT HAVING POC . AND I EXPLAINED TO HIM THAT THAT WILL BE THE NEXT STEP. Coding Level of Care Code Est Pt Level 3 (53146) Diagnoses Pulmonary emphysema, unspecified emphysema type J43.9 COPD type: emphysema Emphysema type: unspecified Smoker F17.200 Left lower lobe pulmonary nodule R91.1 Hypoxemia R09.02
[2024-09-29 11:44] VITALS: PULSE 98; O2SAT 92
--- OUTSIDE RECORDS SUMMARY | 2024-09-29 12:35 | XMS_ITS | Encounter Summary ---
Author Organization [employer] Address [address] [place] [address] [address] [place] [address] Care Team Providers Care Communications Programmer Name Role Phone Davey Vasquez MD Primary Care Provider [phone] Reason for Visit * Reason Comments Med Refill Encounter Details Date Type Department Care Team ([facility] Contact Info) Description 03/20/2024 Refill [facility]S [address], [place] [phone] Davey Vasquez MD [address] [place], [place] [phone] Essential hypertension Social History Tobacco Use Types Packs/Day Years Used Date Smoking Tobacco: Former Cigarettes Smokeless Tobacco: Former Depression Answer Date Recorded Patient Health Questionnaire-9 Score 3 12/10/2022 Housing Stability Answer Date Recorded What is your housing situation today? I have sylwia bardales 06/01/[address] you li ve. Do you have problems with any of the following? None of the above 06/01/2023 Food Insecurity Answer Date Recorded Within the past 12 months, y ou worried that your food would run out before you got money to buy more: Never True 06/01/2023 Within the past 12 months,th e food you bought just didn't last and you didn't have enough money to get more: Never True 05/2023 Transportation Answer Date Recorded In the past 12 months, has l ack of transportation kept you from medical appts, meetings, work or from getting things needed for daily living? No 06/01/2023 Utilities Answer Date Recorded In the past 12 months, has t he electric, gas, oil or water company threatened to shut off services in your home? No 06/01/2023 Depression Answer Date Recorded Patient Health Questionnaire-2 Score 1 12/10/2022 Sex and Gender Information Value Date Recorded Sex Assigned at Male 05/21/2022 10:22 AM EDT Legal Sex Male 10:22 AM EDT Gender Identity Male 05/21/2022 10:22 AM EDT Sexual Orientation Don't know 05/21/2022 10 :22 AM EDT documented as of this encounter Plan of Treatment Not on file documented as of this encounter Visit Diagnoses Diagnosis Essential hypertension Unspecified essential hypertension documented in this encounter Additional Health Concerns Assessment Noted Time PHQ-9 Depression Total Score: 3 12/11/19 23 10:00 AM EDT documented as of this encounter Care Teams Communications Programmer Relationship Specialty Start Date End Date Davey Vasquez MD [address] [place] [address] PCP - General Internal Medicine 04/21/12 documented as of this encounter
--- OUTSIDE RECORDS SUMMARY | 2024-09-29 12:35 | XMS_ITS | Encounter Summary ---
Author Organization [employer] Address [address] [place] [address] [address] [place] [address] Care Team Providers Care Heater Planer Operator Name Role Phone Davey Vasquez MD Primary Care Provider [phone] Reason for Visit * Reason Comments Med Refill Encounter Details Date Type Department Care Team ([facility] st Contact Info) Description 09/22/2023 Refill [facility] PEDS [address] [place], [place] [phone] Davey Vasquez MD [address] [place], [place] [phone] Essential hypertension Social History Tobacco Use Types [...] documented as of this encounter Care Teams Heater Planer Operator Relationship Specialty Start Date End Date Davey Vasquez MD [address] [place] [address] PCP - General Internal Medicine 04/21/12 documented as of this encounter
--- OUTSIDE RECORDS SUMMARY | 2024-09-29 12:35 | XMS_ITS | Encounter Summary ---
Author Organization [employer] Address [address] [place] [address] [address] [place] [address] Care Team Providers Care Boat Builder And Repairer Name Role Phone Davey Vasquez MD Primary Care Provider [phone] Encounter Details Date Type Department Care Team (Late st Contact Info) Description 09/04/2022 Orders Only [facility]IC[facility] [address] [place], [place] [phone] Peg Bradley LPN Social History Tobacco Use Types Packs/Day Years Used Date Smoking Tobacco: Never Assessed Sex and Gender Information Value Date Recorded Sex Assigned at Male 05/21/2022 10:22 AM EDT Legal Sex Male 10:22 AM EDT Gender Identity Male 05/21/2022 10:22 AM EDT Sexual Orientation Don't know 05/21/2022 10 :22 AM EDT documented as of this encounter Plan of Treatment Not on file documented as of this encounter Visit Diagnoses Not on filedocumented in this encounter Care Teams Boat Builder And Repairer Relationship Specialty Start Date End Date Davey Vasquez MD [address] [facility] [place] [address] PCP - General Internal Medicine 04/21/12 documented as of this encounter
--- OUTSIDE RECORDS SUMMARY | 2024-09-29 12:35 | XMS_ITS | Clinical Summary ---
Author Organization [employer] Address [address] [place] [address] 7t [place] [address] Care Team Providers Care Digital Coordinator Name Role Phone Davey Vasquez MD Primary Care Provider +1- [phone] Allergies Active Allergy Reactions Criticality Noted Date Comments Acetaminophen 04/21/2012 Bluixbvtc-Qp-Tnypoznuhywdi Nausea And Vomiting High 12/31/2023 Chlorpheniramine 04/21/2012 Phenylephrine 04/21/2012 Medications Symbicort 160-4.5 MCG/ACT inhalerIndication s:Other emphysema (CMS/HCC) TAKE 2 PUFFS BY MOUTH TWICE A DAY IN THE MORNING AND IN THE EVENING 30.6 each 3 3 Active fluticasone-salme terol (Advair HFA) 230-21 MCG/ACT inhaler INHALE 2 PUFFS BY MOUTH IN THE MORNING AND AT BEDTIME. RINSE MOUTH WITH WATER AFTER USE TO REDUCE AFTERTASTE AND INCIDENCE OF CANDIDIASIS. DO NOT SWALLOW. 12 g 11 3 Active furosemide (Lasix) 20 MG tabletIndications :Essential hypertension Take 1 tablet (20 mg) by mouth in the morning. 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 90 tablet 3 5 Active Active Problems Problem Noted Date Diagnosed Date Left lower lobe pulmonary nodule 04/21/2024 Pneumothorax 04/21/2024 Smoker 04/21/2024 COPD (chronic obstructive pulmonary disease) 07/2023 Routine adult health maintenance 12/10/2022 Assessment & Plan (12/10/2022 9:58 AM EDT): Offered care gaps to Harry. He was not interested in any vaccinations. I attempted to argue for at least the pneumococcal vaccine because of his COPD and continued smoking. He was not interested. Harry last colonoscopy was 2011. They removed a benign polyp and recommended a repeat colonoscopy in 5 years. Harry did not like that they starved him for 36 hours before the procedure. He refused and said he will not have another one. He did accept getting his lab work drawn today. Essential hypertension 04/01/2017 Assessment & Plan (12/10/2022 10:03 AM EDT): Blood pressure well managed. I do not advise altering medications today. Counseled low-salt diet, advised increase in exercise to 30 min/ day most days, weight loss if applicable. Call clinic for high BP >170/90 or low <90/60. Pulmonary emphysema 04/01/2017 Assessment & Plan (12/10/2022 10:02 AM EDT): Harry reports being baseline with no recent exacerbations. He has no concerns about his pulmonary function at this time. He is going to be attempting to quit smoking again in the near future but does not require any assistance from conventional medicine. Atherosclerosis of coronary artery 04/21/2012 Malignant tumor of prostate 04/21/2012 Chronic back pain 04/21/2007 Cerebrovascular accident 04/21/1998 Encounters Date Type Department Care Team Description 08/19/2024 Refill [facility] MED & PEDS [address] [place] [address] Davey Vasquez MD from Last 3 Months Immunizations Name Administration Dates Next Due Tdap 12/30/2012 Social History Tobacco Use Types Packs/Day Years Used Date Smoking Tobacco: Former Cigarettes Smokeless Tobacco: Former Tobacco Cessation:Counseling Given: Not Answered Depression Answer Date Recorded Patient Health Questionnaire-9 [...] Don't know 05/21/2022 10 :22 AM EDT Last Filed Vital Signs Vital Sign Reading Time Taken Comments Blood Pressure 128/74 04/21/2024 8:59 AM EDT Pulse 74 04/21/2024 8:59 AM EDT Temperature 36.3 ??C (97.3 ??F) 04/21/2024 8:59 AM ED T Respiratory Rate 14 04/21/2024 8:59 AM EDT Oxygen Saturation 93% 04/21/2024 8:59 AM EDT Inhaled Oxygen Concentration - - Weight 60.9 kg (134 lb 3.2 oz) 04/21/2024 8:59 A M EDT Height 170.8 cm (5' 7.25 ) 04/21/2024 8:59 AM ED T Body Mass Index 20.86 04/21/2024 8:59 AM EDT Plan of Treatment Health Maintenance Due Date Last Done Comments CT Colonography 1952 Colonoscopy 1952 Colorectal Cancer Screening 1952 FIT DNA/Cologuard 1952 FIT 1952 FOBT 1952 Sigmoidoscopy 1952 Alcohol/Substance Use Screening 1964 Depression Screening 12/11/2023 12/10/2022, 12/10/2022 SDOH Screening 12/11/2023 12/10/2022 Influenza Vaccine (#1) 2025 Postp oned from 03/22/2024 (Patient Refused) COVID-19 Vaccine (1 - 2023-2 5 season) 2025 Postponed from 03/22 (Patient Refused) DTaP/Tdap/Td Vaccines (2 - T d or Tdap) 04/21/2025 12/30/2012 Postponed from 12/30 (Patient Refused) Pneumococcal Vaccine: 50+ Years (1 of 2 - PCV) 04/21/2025 Postponed from 08/1970 (Patient Refused) RSV Patients and Patients Aged 60 years or older (1 - Risk 60-74 years 1-dose series) 04/21/2025 Postponed from 06/22 (Patient Refused) Tobacco Screening 04/21/2025 04/21/2024 Zoster Vaccines (1 of 2) 04/21/2025 Pos tponed from 2002 (Patient Refused) Lipid Panel 04/22/2029 04/22/2024 Hepatitis C Screening Completed 04/22/2024 HIB Vaccines Aged Out No longer eligi ble based on patient's age to complete this topic HPV Vaccines Aged Out No longer eligi ble based on patient's age to complete this topic Hepatitis A Vaccines Aged Out No long er eligible based on patient's age to complete this topic Hepatitis B Vaccines Aged Out No long er eligible based on patient's age to complete this topic IPV Vaccines Aged Out No longer eligi ble based on patient's age to complete this topic Meningococcal Vaccine Aged Out No arnulfo luis eligible based on patient's age to complete this topic RSV under 20 months Aged Out No longe r eligible based on patient's age to complete this topic Rotavirus Vaccines Aged Out No longer eligible based on patient's age to complete this topic Procedures Procedure Name Priority Date/Time Associated Diagnosis Comments HEPATITIS C AB W/REFL TO HCV RNA, QN, PCR Routine 04/22/2024 8:24 AM EDT Chronic obstructive pulmonary disease, unspecified COPD type (CMS/HCC) Essential hypertension Cerebrovascular accident (CVA), unspecified mechanism (CMS/HCC) LIPID PANEL, STANDARD Routine 04/22/2024 8:24 AM EDT Chronic obstructive pulmonary disease, unspecified COPD type (CMS/HCC) Essential hypertension Cerebrovascular accident (CVA), unspecified mechanism (CMS/HCC) from Last 3 Months or Most Recently Relevant to Health Maintenance Results * Hepatitis C Antibody with Reflex to HCV, RNA, Quantitative, Real-Time PCR (04/22/2024 8:24 AM EDT) Hepatitis C Antibody Nonreactive Nonreactive [facility] Comment:Antibodies to HCV no t detected; does not exclude early acuteHCV infection. Blood Venous blood specimen / Unknown 04/22/2024 8:24 AM EDT 04/22/2024 2:37 PM EDT Davey Vasquez MD LAB BLOOD ORDERABLES Final Result [facility] [address] [place] [phone] * Lipid Panel, Standard (04/22/2024 8:24 AM EDT) Triglycerides 49 <150 mg/dL [facility] Comment:Desirable Triglyceri de: less than 150 mg/dLBorderline High Triglyceride 150-199 mg/dLHigh Triglyceride: 200-499 mg/dLVery High Triglyceride: greater than or equal to 5OO mg/dL Cholesterol 140 <200 mg/dL [facility] Comment:Desirable Cholestero l: less than 200 mg/dLBorderline High Cholesterol: 200-239 mg/dLHigh Cholesterol: greater than 239 mg/dL LDL Cholesterol Calculated 72 <100 mg/dL [facility] Comment:Desirable LDL: less than 100 mg/dLNear Optimal/Above Optimal LDL: 110- 129 mg/dLBorderline High LDL: 130-159 mg/dLHigh LDL: 160-189 mg/dLVery High LDL: greater than or equal to 190 mg/dL HDL Cholesterol 59 >40 mg/dL [facility] Comment:Desirable HDL: great er than 40 mg/dL Note: This HDL assay may give artificially low results in patients with liver disease. Blood Venous blood specimen / Unknown 04/22/2024 8:24 AM EDT 04/22/2024 2:37 PM EDT Davey Vasquez MD LAB BLOOD ORDERABLES Final Result [facility] [address] [place] [phone] from Last 3 Months or Most Recently Relevant to Health [place] [id number] [facility] STANDARD Care Teams Digital Coordinator Relationship Specialty Start Date End Date Davey Vasquez MD [address] [place] [phone] PCP - General Internal Medicine 04/21/12
--- OUTSIDE RECORDS SUMMARY | 2024-09-29 12:35 | XMS_ITS | Encounter Summary ---
Author Organization [employer] Address [address] [place] [address] 7t [place] [address] Care Team Providers Care Dental Assistant Medical Assistant Name Role Phone Davey Vasquez MD Primary Care Provider [phone]- [phone] Encounter Details Date Type Department Care Team ([facility] st Contact Info) Description 09/25/2022 Orders Only [facility] CH[facility] MED & PEDS [address] [place] [address] Bell Gutierrez LPN Social History Tobacco Use Types Packs/Day [...] on filedocumented in this encounter Care Teams Dental Assistant Medical Assistant Relationship Specialty Start Date End Date Davey Vasquez MD [address] [place] [address] PCP - General Internal Medicine 04/21/12 documented as of this encounter
--- OUTSIDE RECORDS SUMMARY | 2024-09-29 12:35 | XMS_ITS | Encounter Summary ---
Author Organization [employer] Address [address] [place] [address] [place] [address] Care Team Providers Care Retirement Administrator Name Role Phone Davey Vasquez MD Primary Care Provider +1- [phone] Reason for Visit * Reason Onset Date Comments Med Refill 03/28/2023 Encounter Details Date Type Department Care Team ([facility] st Contact Info) Description 03/28/2023 Telephone [facility] MED & PEDS [address] [place] [address] Davey Vasquez MD [address] [place] [address] Med Refill Social History Tobacco Use Types Packs/Day Years Used Date Smoking Tobacco: Former Cigarettes Smokeless Tobacco: Former Depression Answer Date Recorded Patient Health Questionnaire-9 Score 3 12/10/2022 Depression Answer Date Recorded Patient Health Questionnaire-2 Score 1 12/10/2022 Sex and Gender Information Value Date Recorded Sex Assigned at Male 05/21/2022 10:22 AM EDT Legal Sex Male 10:22 AM EDT Gender Identity Male 05/21/2022 10:22 AM EDT Sexual Orientation Don't know 05/21/2022 10 :22 AM EDT documented as of this encounter Miscellaneous Notes * Telephone Encounter - Bell Gutierrez LPN - 03/28/2023 9:50 AM EDT Medication pended to PCP. * Telephone Encounter - Danya Curtis - 03/28/2023 9:32 AM EDT Tc from pt requesting medication refill on furosemide (Lasix) 20 MG tablet documented in this encounter Plan of Treatment Not on file documented as of this encounter Visit Diagnoses Not on filedocumented in this encounter Additional Health Concerns Assessment Noted Time PHQ-9 Depression Total Score: 3 12/11/19 23 10:00 AM EDT documented as of this encounter Care Teams Retirement Administrator Relationship Specialty Start Date End Date Davey Vasquez MD [address] [place] [phone] PCP - General Internal Medicine 04/21/12 documented as of this encounter
--- OUTSIDE RECORDS SUMMARY | 2024-09-29 12:35 | XMS_ITS | Encounter Summary ---
Author Organization [facility] Address [address] [place] [address] [place] [address] Care Team Providers Care Gatekeeper Name Role Phone Davey Vasquez MD Primary Care Provider [phone]- [phone] Reason for Visit * Reason Comments Med Refill Encounter Details Date Type Department Care Team ([facility] st Contact Info) Description 09/02/2022 Refill [facility] MED & PEDS [address] [place], [place] [phone] Davey Vasquez MD [address] [place] [address] Atherosclerosis of [place]in[place] coronary artery of [place]in[place] heart with other form of angina pectoris (CMS/HCC) (Primary Dx) Social History Tobacco Use Types Packs/Day Years [...] as of this encounter Visit Diagnoses Diagnosis Atherosclerosis of rincon coronary artery of rin[place] heart with other form of angina pectoris (CMS/HCC)- Primary documented in this encounter Care Teams Gatekeeper Relationship Specialty Start Date End Date Davey Vasquez MD [address] [place] [address] PCP - General Internal Medicine 04/21/12 documented as of this encounter
--- OUTSIDE RECORDS SUMMARY | 2024-09-29 12:35 | XMS_ITS | Encounter Summary ---
Author Organization [employer] Address [address] [facility] 7 [place] [address] Care Team Providers Care Funeral Arranger Name Role Phone Davey Vasquez MD Primary Care Provider [phone] [phone] Reason for Visit * Reason Onset Date Comments Med Refill 12/23/2023 Encounter Details Date Type Department Care Team ([facility] st Contact Info) Description 12/23/2023 Telephone [facility] MEDICINE [address] [place] [address] Davey Vasquez MD [address] [facility] [address] [place], [place] [phone] Med Refill Social History Tobacco Use Types [...] Telephone Encounter - Bell Gutierrez LPN - 12/23/2023 9:29 AM EDT Medication was sent to [facility][id number] on 09/23/23 #90 with 1 refill. * Telephone Encounter - Jovita Welch - 12/23/2023 9:10 AM EDT TC from pt requesting medication refill. Medications needing refill : furosemide (Lasix) 20 MG tablet To be sent to: [facility]/pharmacy #[id number] - [place] - [address] [place] [address] documented in this encounter Plan of Treatment Not on file documented as of this encounter Visit Diagnoses Not on filedocumented in this encounter Additional Health Concerns Assessment Noted Time PHQ-9 Depression Total Score: 3 12/11/19 23 10:00 AM EDT documented as of this encounter Care Teams Funeral Arranger Relationship Specialty Start Date End Date Davey Vasquez MD [address] [place] [address] [place] [address] PCP - General Internal Medicine 04/21/12 documented as of this encounter
== END 2024-09-29 12:06 | disposition home or self-care (01) ==
LOC: HO.HPS 10:31
PROVIDERS: PCP Internal Medicine; Visit Provider Internal Medicine
DX: J43.9 Emphysema, unspecified (principal); F17.200 Nicotine dependence, unspecified, uncomplicated; R91.1 Solitary pulmonary nodule; R09.02 Hypoxemia
CPT/HCPCS: 94618; 99213

== ENCOUNTER → 2024-09-29 10:31 | Outpatient (BNVA) | payer MEDICARE, MEDICAID, SELFPAY | PROVIDERS: PCP Internal Medicine; Visit Provider Internal Medicine | DX: J43.9 Emphysema, unspecified (principal); R91.1 Solitary pulmonary nodule; R09.02 Hypoxemia; F17.210 Nicotine dependence, cigarettes, uncomplicated | CPT/HCPCS: 94618; 99212 ==

== ENCOUNTER 2024-12-09 15:33 | Outpatient (AMB) | payer MEDICARE, MEDICAID, SELFPAY ==
--- OUTSIDE RECORDS SUMMARY | 2024-12-09 15:35 | XMS_ITS | Encounter Summary ---
Author Organization [facility] Address [address] [place] [address] 7t [place] [address] Care Team Providers Care Geriatric Psychiatrist Name Role Phone Davey Vasquez MD Primary Care Provider +1- [phone] Encounter Details Date Type Department Care Team ([facility] st Contact Info) Description 09/25/2022 Orders Only [facility] MED & PEDS [address] [place] [address] Bell Gutierrez LPN Social History Tobacco Use [...] on filedocumented in this encounter Care Teams Geriatric Psychiatrist Relationship Specialty Start Date End Date Davey Vasquez MD [address] [place] [address] PCP - General Internal Medicine 04/21/12 documented as of this encounter
--- OUTSIDE RECORDS SUMMARY | 2024-12-09 15:35 | XMS_ITS | Encounter Summary ---
Author Organization [employer] Address [address] [place] [address] [place] [address] Care Team Providers Care Greeting Card Writer Name Role Phone Davey Vasquez MD Primary Care Provider +1- [phone] Reason for Visit * Reason Onset Date Comments Med Refill 03/28/2023 Encounter Details Date Type Department Care Team ([facility] st Contact Info) Description 03/28/2023 Telephone [facility] CHC MED & PEDS [address] [place] [address] Davey Vasquez MD [address] [place] [address] Med Refill Social History Tobacco Use Types [...] documented as of this encounter Care Teams Greeting Card Writer Relationship Specialty Start Date End Date Davey Vasquez MD [address] [place] [phone] PCP - General Internal Medicine 04/21/12 documented as of this encounter
--- OUTSIDE RECORDS SUMMARY | 2024-12-09 15:35 | XMS_ITS | Encounter Summary ---
Author Organization [facility] Address [address] [facility] 7t [place] [address] Care Team Providers Care Ore Dryer Name Role Phone Davey Vasquez MD Primary Care Provider Encounter Details Date Type Department Care Team (Late st Contact Info) Description 09/04/2022 Orders Only [facility] MEDICINE [address] [place] [address] Peg Bradley LPN Social History Tobacco Use [...] on filedocumented in this encounter Care Teams Ore Dryer Relationship Specialty Start Date End Date Davey Vasquez MD [address] [place] [address] PCP - General Internal Medicine 04/21/12 documented as of this encounter
--- OUTSIDE RECORDS SUMMARY | 2024-12-09 15:35 | XMS_ITS | Encounter Summary ---
Author Organization [employer] Address [address] [facility] 7 [place] [address] Care Team Providers Care Specialist Managers Name Role Phone Davey Vasquez MD Primary Care Provider +1- [phone] Reason for Visit * Reason Comments Med Refill Encounter Details Date Type Department Care Team ([facility] Contact Info) Description 09/22/2023 Refill [facility] CH[facility] MED & PEDS [address] [place], [place] [phone] Davey Vasquez MD [address] [place] [address] Essential hypertension Social History Tobacco Use Types [...] documented as of this encounter Care Teams Specialist Managers Relationship Specialty Start Date End Date Davey Vasquez MD [address] [place] [id number] PCP - General Internal Medicine 04/21/12 documented as of this encounter
--- OUTSIDE RECORDS SUMMARY | 2024-12-09 15:35 | XMS_ITS | Encounter Summary ---
Author Organization [facility] Address [address] [place] [address] 7 [place] [address] Care Team Providers Care Scroll Saw Operator Name Role Phone Davey Vasquez MD Primary Care Provider Reason for Visit * Reason Comments Med Refill Encounter Details Date Type Department Care Team ([facility] st Contact Info) Description 09/02/2022 Refill [facility] CHC MED & PEDS [address] [place] [address] Davey Vsaquez MD [address] [place] [address] Atherosclerosis of morongo coronary artery of [place]ongo heart with other form of angina pectoris [...] this encounter Visit Diagnoses Diagnosis 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
--- OUTSIDE RECORDS SUMMARY | 2024-12-09 15:35 | XMS_ITS | Encounter Summary ---
Author Organization [employer] Address [address] [facility] 7t [place] [address] Care Team Providers Care Senior Mobile Developer Name Role Phone Davey Vasquez MD Primary Care Provider [phone]- [phone] Reason for Visit * Reason Onset Date Comments Med Refill 12/23/2023 Encounter Details Date Type Department Care Team (Late st Contact Info) Description 12/23/2023 Telephone [facility] MEDICINE [address] [place] [address] Davey Vasquez MD [address] [place], [place] [phone] Med Refill Social History Tobacco Use Types [...] 9:29 AM EDT Medication was sent to [facility]#[id number] on 09/23/23 #90 with 1 refill. * Telephone Encounter - Jovita Welch - 12/23/2023 9:10 AM EDT TC from pt requesting medication refill. Medications needing refill : furosemide (Lasix) 20 MG tablet To be sent to: [facility]/pharmacy #[id number] - [place] - [address] [place] [address] documented in this encounter Plan of Treatment Not on file documented as of this encounter Visit Diagnoses Not on filedocumented in this encounter Additional Health Concerns Assessment Noted Time PHQ-9 Depression Total Score: 3 12/11/19 23 10:00 AM EDT documented as of this encounter Care Teams Senior Mobile Developer Relationship Specialty Start Date End Date Davey Vasquez MD [address] [place] [id number] PCP - General Internal Medicine 04/21/12 documented as of this encounter
--- OUTSIDE RECORDS SUMMARY | 2024-12-09 15:35 | XMS_ITS | Clinical Summary ---
Author Organization [employer] Address [address] [place] [address] 7[address] [place] [address] Care Team Providers Care Semiconductor Processing Technician Name Role Phone Davey Vasquez MD Primary Care Provider Allergies Active Allergy Reactions Criticality Noted Date Comments Acetaminophen 04/21/2012 Nnkffpapi-Xp-Dlueragrwoezm Nausea And Vomiting High 12/31/2023 Chlorpheniramine 04/21/2012 Phenylephrine 04/21/2012 Medications Symbicort 160-4.5 MCG/ACT inhalerIndicatio ns:Other emphysema (CMS/HCC) TAKE 2 PUFFS BY MOUTH TWICE A DAY IN THE MORNING AND IN THE EVENING 30.6 each 3 09/11/19 23 Active fluticasone-salm eterol (Advair HFA) 230-21 MCG/ACT inhaler INHALE 2 PUFFS BY MOUTH IN THE MORNING AND AT BEDTIME. RINSE MOUTH WITH WATER AFTER USE TO REDUCE AFTERTASTE AND INCIDENCE OF CANDIDIASIS. DO NOT SWALLOW. 12 g 11 10/30/19 23 Active furosemide (Lasix) 20 MG tabletIndication s:Essential hypertension Take 1 tablet (20 mg) by mouth in the morning. 90 tablet 1 09/23/19 24 Active atorvastatin (Lipitor) 40 MG tabletIndication s:Atherosclerosi s of [place] coronary artery of [place] heart with other form of angina pectoris (CMS/HCC) TAKE 1 TABLET BY MOUTH EVERYDAY AT BEDTIME 90 tablet 1 01/31/20 24 Active Combivent Respimat 20-100 MCG/ACT inhaler TAKE 1 PUFF BY MOUTH EVERY 6 HOURS Active Anoro Ellipta 62.5-25 MCG/ACT aerosol powder INHALE 1 DOSE DAILY DIRECTED 03/25/20 24 Active atorvastatin (Lipitor) 40 MG tablet Take 1 tablet (40 mg) by mouth Once per day. 90 tablet 3 08/19/19 25 Active furosemide (Lasix) 20 MG tablet TAKE 1 TABLET BY MOUTH EVERY DAY 90 tablet 1 10/17/19 25 Active Breo Ellipta 100-25 MCG/ACT aerosol powderIndication s:Other emphysema (CMS/HCC) TAKE 1 PUFF BY MOUTH EVERY MORNING 60 each 11 11/19/19 25 Active Breo Ellipta 100-25 MCG/ACT aerosol powderIndication s:Other emphysema (CMS/HCC) TAKE 1 PUFF BY MOUTH EVERY MORNING 60 each 11 11/25/19 24 025 Discontinued Active Problems Problem Noted Date Diagnosed Date [...] Encounters Date Type Department Care Team Description 11/18/2024 Refill [facility] [address] [place] [address] Davey Vasquez MD Other emphysema (CMS/HCC) 10/15/2024 Refill [facility] [address] [place], [place] [id number] Davey Vasquez MD from Last 3 Months Immunizations Immunization Administration Dates Next Due Tdap 12/30/2012 Social [...] patient's age to complete this topic Meningococcal B Vaccine Aged Out No l onger eligible based on patient's age to complete [...] AM EDT) Hepatitis C Antibody Nonreactive Nonreactive [facility] Comment:Antibodies to HCV no t detected; does not exclude early acuteHCV infection. Blood Venous blood specimen / Unknown 04/22/2024 8:24 AM EDT 04/22/2024 2:37 PM EDT us Davey Vasquez MD LAB BLOOD ORDERABLES Final Result [facility] [address] [place] [address] [phone] * Lipid Panel, Standard (04/22/2024 8:24 AM EDT) Triglycerides 49 <150 mg/dL [facility] Comment:Desirable Triglyceri de: less than 150 mg/dLBorderline High Triglyceride 150-199 mg/dLHigh Triglyceride: 200-499 mg/dLVery High Triglyceride: greater than or equal to 5OO mg/dL Cholesterol 140 <200 mg/dL [facility] Comment:Desirable Cholestero l: less than 200 mg/dLBorderline High Cholesterol: 200-239 mg/dLHigh Cholesterol: greater than 239 mg/dL LDL Cholesterol Calculated 72 <100 mg/dL [facility] Comment:Desirable LDL: less than 100 mg/dLNear Optimal/Above Optimal LDL: 110- 129 mg/dLBorderline High LDL: 130-159 mg/dLHigh LDL: 160-189 mg/dLVery High LDL: greater than or equal to 190 mg/dL HDL Cholesterol 59 >40 mg/dL [facility] Comment:Desirable HDL: great er than 40 mg/dL Note: This HDL assay may give artificially low results in patients with liver disease. Blood Venous blood specimen / Unknown 04/22/2024 8:24 AM EDT 04/22/2024 2:37 PM EDT Davey Vasquez MD LAB BLOOD ORDERABLES Final Result [facility] [address] [place] [address] [phone] from Last 3 Months or Most Recently Relevant to Health Maintenance Insurance MEDICARE [facility] STANDARD * Guarantor: Harry Delgado Account Type Relation to Patient Date of Phone Billing Address Personal/Family Self [address] [place] [address] [place] Care Teams Semiconductor Processing Technician Relationship Specialty Start Date End Date Davey Vasquez MD [address] [place] [address] [place] [id number] PCP - General Internal Medicine 04/21/12
--- OUTSIDE RECORDS SUMMARY | 2024-12-09 15:35 | XMS_ITS | Encounter Summary ---
Author Organization [email or web address] Address [address] [facility] [address] [place] [address] Care Team Providers Care Booker Name Role Phone Davey Vasquez MD Primary Care Provider [phone] Reason for Visit * Reason Comments Med Refill Encounter Details Date Type Department Care Team ([facility] Contact Info) Description 03/20/2024 Refill [facility] [address] [place], [place] [phone] Davey Vasquez MD [address] [place] [address] Essential hypertension Social History Tobacco Use Types [...] documented as of this encounter Care Teams Booker Relationship Specialty Start Date End Date Davey Vasquez MD [address] [place] [id number] PCP - General Internal Medicine 04/21/12 documented as of this encounter
[2024-12-09 15:36] VITALS: BP 120/70; PULSE 75; O2SAT 99
--- NOTE | 2024-12-09 15:36 | A.OFFVIS_ITS ---
Vital Signs 12/09/24 15:36 Height 5 ft 8 in BP 120/70 Blood Pressure Location Lt brachial Position Sitting Pulse 75 Pulse Source Pulse Oximeter Pulse Oximetry (%) 99 Oxygen Delivery Method Room Air Intake Visit Reasons: copd Intake Note: pt is here for follow up and states he is using oxygen for exertion and at night on 2 liters. Hydropress Operator Required: No Allergies contac cold Adverse Reaction (Intermediate, Uncoded 12/09/24 15:59) Nausea and Vomiting Medication List - Last Reconciled 12/09/24 by Solomon Peguero MD Anoro Ellipta 62.5-25 mcg/actuation (umeclidinium-vilanterol) 1 ea PO DAILY NS aspirin 81 mg PO DAILY atorvastatin 40 mg PO DAILY Combivent Respimat 20-100 mcg/actuation (ipratropium-albuterol) 1 puff PO Q6H NS fluticasone furoate-vilanterol 100-25 mcg/dose (Breo Ellipta) 1 inh inhalation DAILY 30 days furosemide 20 mg PO DAILY Do you need a note to return to daycare/school/sports/work: No HPI HPI copd: Details: This 74 years old gentleman a lifelong smoker who has finally quit, has advanced chronic obstructive pulmonary disease. Claims that his breathing is better than before. Since last visit over here he has been using oxygen mostly at night and also with any physical activity during the daytime. He does not walk much. Uses Anoro Ellipta once a day , Breo Ellipta 100-25 once a day and Combivent Respimat q.6 hours PRN PFSH Medical History Hypoxemia Nicotine dependence, cigarettes, uncomplicated History of fall Stroke Heart attack Prostate cancer Smoker COPD (chronic obstructive pulmonary disease) Surgical History H/O colonoscopy History of hand surgery History of prostate surgery Social History Patient Tobacco Use Status: Former Tobacco user Tobacco use type: Cigarette Cigarettes Per Day: 3 service: Yes Review of Systems Const All systems reviewed & are unremarkable except as noted in HPI and below Eyes Reports no additional complaints ENT Reports no additional complaints Card Denies chest pain, Denies irregular heart rhythm and Denies leg edema Resp Reports as per HPI GI Reports no additional complaints Reports no additional complaints Musc Reports no additional complaints Skin/Breast Reports system reviewed and no additional complaints, except as documented Neuro Reports no additional complaints Psych Reports no additional complaints Physical Exam Vital Signs: Last Vital Signs Pulse 75 12/09/24 15:36 BP 120/70 12/09/24 15:36 Pulse Ox 99 12/09/24 15:36 Oxygen Delivery Method Room Air 12/09/24 15:36 Const General: comfortable, no acute distress, alert and awake Orientation/consciousness: patient oriented x3 HEENT Head: Yes normal to inspection General nose exam: No nasal polyps present and No nasal discharge present Face and sinus: Yes sinuses nontender Mouth: oropharynx normal Throat: Yes posterior oropharynx normal Eyes General: appearance normal, both eyes and all related structures Neck Neck: Yes normal visual inspection, Yes no lymphadenopathy, Yes trachea midline and Yes no JVD Thyroid: Thyroid normal Chest Chest palpation & inspection: normal inspection of the chest, normal palpation of entire chest wall and no tenderness Resp Other: Percussion note resonant, breath sounds are very distant with prolonged expiratory phase. No wheezes rhonchi or crepitations are heard. Cardio Palpation: normal PMI Rate: regular rate Rhythm: regular rhythm Heart sounds: no gallops and no murmurs GI Palpation (GI): Soft to palpation, nontender, No hepatosplenomegaly present and no masses Auscultation: normal bowel sounds Back/Spine/Pelvis Thoracic/Lumbar Spine: thoracic and lumbar spine normal to inspection Skin General skin exam: no rashes or lesions noted and dry skin Neuro General: patient oriented x3 and no focal motor deficits Cranial nerves: Yes CN's II-XII intact bilaterally Extrem General: Yes normal to inspection, Yes no clubbing, cyanosis or edema and Yes no calf tenderness Psych Appearance: grossly normal Speech and movement: Normal speech and movement present Assessment & Plan Assessment & Plan (1) COPD (chronic obstructive pulmonary disease): Comment: He does have rather severe degree of chronic obstructive pulmonary disease. It is fairly well controlled at this time, with the current regimen but he is still complaining of lot of mucus and urge to clear it. Complaining of shortness of breath on minimal exertion.. Code(s): J44.9 - Chronic obstructive pulmonary disease, unspecified Category: Medical Qualifiers: COPD type: emphysema Emphysema type: unspecified Qualified Code(s): J43.9 - Emphysema, unspecified Plan: Continue to use Breo 100-251 inhalation daily. Anoro Ellipta 1 inhalation daily, Combivent Respimat 1 inhalation Q 6 hours p.r.n. (2) Smoker: Comment: STILL SMOKING 3- CIGARETTES A DAY BUT CLAIMS THAT FOR THE LAST FEW WEEKS HE HAS NOT SMOKED AT ALL. Code(s): F17.200 - Nicotine dependence, unspecified, uncomplicated Category: Social Hx Plan: Stressed that he has to quit completely (3) Left lower lobe pulmonary nodule: Comment: (1.9 x 1.2 x 0.8 cm LLL nodule -S/P s/p PERCUTANEOUS NEEDLE BIOPSY, PATHOLOGY REPORT: NONSPECIFIC GRANULOMA ., BENIGN . HE IS SCHEDULED TO 6 MON[address]S FOLLOW-UP WITH CT SCAN, Code(s): R91.1 - Solitary pulmonary nodule Category: Surgical Plan: Continue to have CT scans as advised (4) Hypoxemia: Comment: PATIENT WALKED INTO THE OFFICE AND HIS O2 SAT WAS LOW, 86 % IT TOOK SEVERAL MINUTES TO COME UP TO NORMAL LEVEL. Today at O2 2 L/minute the O2 sat is in mid 90s. Code(s): R09.02 - Hypoxemia Category: Medical Plan: Advised to use O2 2 L/minute at night, 2 L/minute with any physical activity. When resting at home he. does not have to use oxygen He is questioning about getting a very lightweight portable concentrator. I explained to him that for that he would need a 6 minutes walk again and we will do it on his. Next visit Coding Level of Care Code Est Pt Level 3 (41929) Diagnoses Pulmonary emphysema, unspecified emphysema type J43.9 COPD type: emphysema Emphysema type: unspecified Smoker F17.200 Left lower lobe pulmonary nodule R91.1 Hypoxemia R09.02
== END 2024-12-09 16:01 | disposition home or self-care (01) ==
LOC: HO.HPS 15:34
PROVIDERS: PCP Internal Medicine; Visit Provider Internal Medicine
DX: J43.9 Emphysema, unspecified (principal); F17.200 Nicotine dependence, unspecified, uncomplicated; R91.1 Solitary pulmonary nodule; R09.02 Hypoxemia
CPT/HCPCS: 99213

== ENCOUNTER → 2024-12-09 15:33 | Outpatient (BNVA) | payer MEDICARE, MEDICAID, SELFPAY | PROVIDERS: PCP Internal Medicine; Visit Provider Internal Medicine | DX: J43.9 Emphysema, unspecified (principal); R91.1 Solitary pulmonary nodule; R09.02 Hypoxemia; F17.210 Nicotine dependence, cigarettes, uncomplicated | CPT/HCPCS: 99212 ==

== ENCOUNTER 2025-03-15 15:54 | Outpatient (AMB) | payer MEDICARE, MEDICAID, SELFPAY ==
[2025-03-15 15:58] VITALS: BP 151/79; PULSE 95; RESP 21; O2SAT 96; BMI 21.6
--- NOTE | 2025-03-15 15:58 | A.OFFVIS_ITS ---
Vital Signs 03/15/25 15:58 Height 5 ft 8 in Weight 142 lb 3.17 oz BMI 21.6 BP 151/79 H Blood Pressure Location Lt brachial Position Sitting Respiration 21 H Pulse 95 Pulse Source Pulse Oximeter Pulse Oximetry (%) 96 Oxygen Delivery Method Nasal Cannula Oxygen Flow Rate 2 Intake Visit Reasons: COPD Dance Coach Required: No Allergies contac cold Adverse Reaction (Intermediate, Uncoded 03/15/25 16:50) Nausea and Vomiting Medication List - Last Reconciled 03/15/25 by Solomon Peguero MD Anoro Ellipta 62.5-25 mcg/actuation (umeclidinium-vilanterol) 1 ea PO DAILY NS aspirin 81 mg PO DAILY atorvastatin 40 mg PO DAILY Combivent Respimat 20-100 mcg/actuation (ipratropium-albuterol) 1 puff PO Q6H NS fluticasone furoate-vilanterol 100-25 mcg/dose (Breo Ellipta) 1 inh inhalation DAILY 30 days furosemide 20 mg PO DAILY Do you need a note to return to daycare/school/sports/work: No HPI HPI COPD: Details: Mr. Delgado, 74 years old gentleman is here for follow-up for his COPD, and hypoxemic respiratory failure. He claims that his breathing is fairly stable and he has had no recent respiratory infection. He feels comfortable with the use of Anoro Ellipta once a day and Breo once a day. He uses Combivent Respimat 1 inhalation Q 6 hours p.r.n. for acute exacerbation. His main complaint is that he finds the portable cylinder heavy to carry,. Currently he does have a 5 lb heavy portable cylinder.. He is insistent on getting an Inogen device. [facility] Medical History Hypoxemia Nicotine dependence, cigarettes, uncomplicated History of fall Stroke Heart attack Prostate cancer Smoker COPD (chronic obstructive pulmonary disease) Surgical History H/O colonoscopy History of hand surgery History of prostate surgery Social History Patient Tobacco Use Status: Former Tobacco user Tobacco use type: Cigarette Cigarettes Per Day: 3 service: Yes Review of Systems Const All systems reviewed & are unremarkable except as noted in HPI and below Eyes Reports no additional complaints ENT Reports no additional complaints Card Denies chest pain, Denies irregular heart rhythm and Denies leg edema Resp Reports as per HPI GI Reports no additional complaints Reports no additional complaints Musc Reports no additional complaints Skin/Breast Reports system reviewed and no additional complaints, except as documented Neuro Reports no additional complaints Psych Reports no additional complaints Physical Exam Vital Signs: Last Vital Signs Pulse 95 03/15/25 15:58 Resp 21 H 03/15/25 15:58 BP 151/79 H 03/15/25 15:58 Pulse Ox 96 03/15/25 15:58 Oxygen Delivery Method Nasal Cannula 03/15/25 15:58 Oxygen Flow Rate 2 03/15/25 15:58 BMI result Body Mass Index 21.6 Const General: comfortable, no acute distress, alert and awake Orientation/consciousness: patient oriented x3 HEENT Head: Yes normal to inspection General nose exam: No nasal polyps present and No nasal discharge present Face and sinus: Yes sinuses nontender Mouth: oropharynx normal Throat: Yes posterior oropharynx normal Eyes General: appearance normal, both eyes and all related structures Neck Neck: Yes normal visual inspection, Yes no lymphadenopathy, Yes trachea midline and Yes no JVD Thyroid: Thyroid normal Chest Chest palpation & inspection: normal inspection of the chest, normal palpation of entire chest wall and no tenderness Resp Other: Percussion note resonant, breath sounds are very distant with prolonged expiratory phase. No wheezes rhonchi or crepitations are heard. Cardio Palpation: normal PMI Rate: regular rate Rhythm: regular rhythm Heart sounds: no gallops and no murmurs GI Palpation (GI): Soft to palpation, nontender, No hepatosplenomegaly present and no masses Auscultation: normal bowel sounds Back/Spine/Pelvis Thoracic/Lumbar Spine: thoracic and lumbar spine normal to inspection Skin General skin exam: no rashes or lesions noted and dry skin Neuro General: patient oriented x3 and no focal motor deficits Cranial nerves: Yes CN's II-XII intact bilaterally Extrem General: Yes normal to inspection, Yes no clubbing, cyanosis or edema and Yes no calf tenderness Psych Appearance: grossly normal Speech and movement: Normal speech and movement present Assessment & Plan Assessment & Plan (1) COPD (chronic obstructive pulmonary disease): Comment: He does have rather severe degree of chronic obstructive pulmonary disease. It is fairly well controlled at this time, with the current regimen but he is still complaining of lot of mucus and urge to clear it. Complaining of shortness of breath on minimal exertion.. Code(s): J44.9 - Chronic obstructive pulmonary disease, unspecified Category: Medical Qualifiers: COPD type: emphysema Emphysema type: unspecified Qualified Code(s): J43.9 - Emphysema, unspecified Plan: Advised to continue using Anoro Ellipta, 1 inhalation daily. Breo 100-25. One inhalation daily Combivent Respimat 20-101 inhalation Q 6 hours p.r.n.. (2) Hypoxemia: Comment: PATIENT WALKED INTO THE OFFICE AND HIS O2 SAT WAS LOW, 86 % IT TOOK SEVERAL MINUTES TO COME UP TO NORMAL LEVEL. Today at O2 2 L/minute the O2 sat is in mid 90s. Code(s): R09.02 - Hypoxemia Category: Medical Plan: Advised to continue using O2 at 2 L/minute at night and also when going outdoors. He is complaining of the portable cylinder being too heavy to carry even though it is 5 lb cylinder. He wants to be checked if he can use Inogen . I told them that he will have to have 6 minutes walk test, to check if he can tolerate O2 conserving unit. He will be scheduled to have that 6 minutes walk at his convenience and he is going to call us what would be the best time that he could come. (3) Left lower lobe pulmonary nodule: Comment: (1.9 x 1.2 x 0.8 cm LLL nodule -S/P s/p PERCUTANEOUS NEEDLE BIOPSY, PATHOLOGY REPORT: NONSPECIFIC GRANULOMA ., BENIGN . HE IS SCHEDULED TO 6 MONTHS FOLLOW-UP WITH CT SCAN, Code(s): R91.1 - Solitary pulmonary nodule Category: Surgical Plan: Again told that he would need to have a repeat CT scan at 6 months interval. (4) Smoker: Comment: STILL SMOKING 3- CIGARETTES A DAY BUT CLAIMS THAT FOR THE LAST FEW WEEKS HE HAS NOT SMOKED AT ALL. Code(s): F17.200 - Nicotine dependence, unspecified, uncomplicated Category: Social Hx Plan: Commended for not smoking. Coding Level of Care Code Est Pt Level 4 (13485) Diagnoses Pulmonary emphysema, unspecified emphysema type J43.9 COPD type: emphysema Emphysema type: unspecified Hypoxemia R09.02 Left lower lobe pulmonary nodule R91.1 Smoker F17.200
--- OUTSIDE RECORDS SUMMARY | 2025-03-15 17:48 | XMS_ITS | Encounter Summary ---
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
--- OUTSIDE RECORDS SUMMARY | 2025-03-15 17:48 | XMS_ITS | Encounter Summary ---
Author Organization [employer] Address [address] [place] [address] [place] [address] Care Team Providers Care Sky Line Yarder Name Role Phone Davey Vasquez MD Primary Care Provider [phone]- [phone] Reason for Visit * Reason Onset Date Comments Med Refill 03/28/2023 Encounter Details Date Type Department Care Team ([facility] st Contact Info) Description 03/28/2023 Telephone [facility]S [address] [place] [address] Davey Vasquez MD [address] [place] [address] Med Refill Social History Tobacco Use Types [...] documented as of this encounter Care Teams Sky Line Yarder Relationship Specialty Start Date End Date Davey Vasquez MD [address] [place] [id number] PCP - General Internal Medicine 04/21/12 documented as of this encounter
--- OUTSIDE RECORDS SUMMARY | 2025-03-15 17:48 | XMS_ITS | Encounter Summary ---
Author Organization [employer] [facility] Address [address] [place] [address] 7 [place] [address] Care Team Providers Care Ultrasonic Cleaner Name Role Phone Davey Vasquez MD Primary Care Provider [phone]- [phone] Encounter Details Date Type Department Care Team ([facility] st Contact Info) Description 09/25/2022 Orders Only [facility] MED [facility] PEDS [address] [place] [address] Bell Gutierrez LPN Social History Tobacco Use [...] on filedocumented in this encounter Care Teams Ultrasonic Cleaner Relationship Specialty Start Date End Date Davey Vasquez MD [address] [place] [address] PCP - General Internal Medicine 04/21/12 documented as of this encounter
--- OUTSIDE RECORDS SUMMARY | 2025-03-15 17:48 | XMS_ITS | Clinical Summary ---
Author Organization [employer] Address [address] [place] [address] 7t [place] [address] Care Team Providers Care Low Voltage Electrician Name Role Phone Davey Vasquez MD Primary Care Provider Allergies Active Allergy Reactions Criticality Noted Date Comments Acetaminophen 04/21/2012 Xjyelldsj-Ij-Svohxfzamkokk Nausea And Vomiting High 12/31/2023 Chlorpheniramine 04/21/2012 [...] the morning. 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 90 tablet 3 5 Active furosemide (Lasix) 20 MG tablet TAKE 1 TABLET BY MOUTH EVERY DAY 90 tablet 1 5 Active Breo Ellipta 100-25 MCG/ACT aerosol powderIndications :Other emphysema (CMS/HCC) TAKE 1 PUFF BY MOUTH EVERY MORNING 60 each 11 5 Active Active Problems Problem Noted Date [...] Chronic back pain 04/21/2007 Cerebrovascular accident 04/21/1998 Immunizations Immunization Administration Dates Next Due Tdap [...] 74 04/21/2024 8:59 AM EDT Temperature 36.3 C (97.3 F) 04/21/2024 8:59 AM EDT Respiratory Rate 14 04/21/2024 8:59 AM EDT [...] Screening 12/11/2023 12/10/2022 Influenza Vaccine (#1) 2025 COVID-19 Vaccine (1 - 2023-2 5 season) [...] AM EDT) Hepatitis C Antibody Nonreactive Nonreactive [facility] Comment:Antibodies to HCV no t detected; does not exclude early acuteHCV infection. Blood Venous blood specimen / Unknown 04/22/2024 8:24 AM EDT 04/22/2024 2:37 PM EDT us Davey Vasquez MD LAB BLOOD ORDERABLES Final Result [facility] [address] [place], [place] [phone] * Lipid Panel, Standard (04/22/2024 8:24 AM EDT) Triglycerides 49 <150 mg/dL [facility] Comment:Desirable Triglyceri de: less than 150 mg/dLBorderline High Triglyceride 150-199 mg/dLHigh Triglyceride: 200-499 mg/dLVery High Triglyceride: greater than or equal to 5OO mg/dL Cholesterol 140 <200 mg/dL [facility] Comment:Desirable Cholestero l: less than 200 mg/dLBorderline High Cholesterol: 200-239 mg/dLHigh Cholesterol: greater than 239 mg/dL LDL Cholesterol Calculated 72 <100 mg/dL [facility] Comment:Desirable LDL: less than 100 mg/dLNear Optimal/Above Optimal LDL: 110- 129 mg/dLBorderline High LDL: 130-159 mg/dLHigh LDL: 160-189 mg/dLVery High LDL: greater than or equal to 190 mg/dL HDL Cholesterol 59 >40 mg/dL [facility] Comment:Desirable HDL: great er than 40 mg/dL Note: This HDL assay may give artificially low results in patients with liver disease. Blood Venous blood specimen / Unknown 04/22/2024 8:24 AM EDT 04/22/2024 2:37 PM EDT us Davey Vasquez MD LAB BLOOD ORDERABLES Final Result Performing Organization Address City/State/[facility] Co de Phone Number [facility] [address] [place] [address] [phone] from Last 3 Months or Most Recently Relevant to Health Maintenance [place] [address] [place] [id number] [facility] STANDARD Care Teams Low Voltage Electrician Relationship Specialty Start Date End Date Davey Vasquez MD [address] [place] [address] [place] [address] PCP - General Internal Medicine 04/21/12
--- OUTSIDE RECORDS SUMMARY | 2025-03-15 17:48 | XMS_ITS | Encounter Summary ---
Author Organization [employer] Address [address] [facility] 7 [place] [address] Care Team Providers Care Typing Element Machine Operator Name Role Phone Davey Vasquez MD Primary Care Provider +1- [phone] Reason for Visit * Reason Comments Med Refill Encounter Details Date Type Department Care Team ([facility] Contact Info) Description 03/20/2024 Refill [facility] MED & PEDS [address] [place], [place] [phone] Davey Vasquez MD 505 [place] [address] Essential hypertension Social History Tobacco Use Types [...] documented as of this encounter Care Teams Typing Element Machine Operator Relationship Specialty Start Date End Date Davey Vasquez MD [address] [place] [address] PCP - General Internal Medicine 04/21/12 documented as of this encounter
--- OUTSIDE RECORDS SUMMARY | 2025-03-15 17:48 | XMS_ITS | Encounter Summary ---
Author Organization [facility] Address [address] [place] [address] 7t [place] [address] Care Team Providers Care Aircraft Structural Repairer Name Role Phone Davey Vasquez MD Primary Care Provider Encounter Details Date Type Department Care Team (Late st Contact Info) Description 09/04/2022 Orders Only [facility] [address] [place] [address] Peg Bradley LPN Social History Tobacco Use [...] on filedocumented in this encounter Care Teams Aircraft Structural Repairer Relationship Specialty Start Date End Date Davey Vasquez MD [address] [place] [address] PCP - General Internal Medicine 04/21/12 documented as of this encounter
--- OUTSIDE RECORDS SUMMARY | 2025-03-15 17:48 | XMS_ITS | Encounter Summary ---
Author Organization [employer] Address [address] [facility] 7t [place] [address] Care Team Providers Care Perioperative Manager Name Role Phone Davey Vasquez MD Primary Care Provider +1- [phone] Reason for Visit * Reason Onset Date Comments Med Refill 12/23/2023 Encounter Details Date Type Department Care Team (Late st Contact Info) Description 12/23/2023 Telephone [facility] [address] [place] [address] Davey Vasquez MD 505 [place], [place] [phone] Med Refill Social History Tobacco Use Types [...] 9:29 AM EDT Medication was sent to [facility][id number] on 09/23/23 #90 with 1 refill. * Telephone Encounter - Joivta Welch - 12/23/2023 9:10 AM EDT TC from pt requesting medication refill. Medications needing refill : furosemide (Lasix) 20 MG tablet To be sent to: [facility]/pharmacy #[id number] - [place] - [address] [place] [address] documented in this encounter Plan of Treatment Not on file documented as of this encounter Visit Diagnoses Not on filedocumented in this encounter Additional Health Concerns Assessment Noted Time PHQ-9 Depression Total Score: 3 12/11/19 23 10:00 AM EDT documented as of this encounter Care Teams Perioperative Manager Relationship Specialty Start Date End Date Davey Vasquez MD [address] [place] [address] PCP - General Internal Medicine 04/21/12 documented as of this encounter
--- OUTSIDE RECORDS SUMMARY | 2025-03-15 17:48 | XMS_ITS | Encounter Summary ---
Author Organization [employer] Address 75 [facility] 7 [place] [address] Care Team Providers Care Radiologic Technology Teacher Name Role Phone Davey Vasquez MD Primary Care Provider +1- [phone] Reason for Visit * Reason Comments Med Refill Encounter Details Date Type Department Care Team ([facility] Contact Info) Description 09/22/2023 Refill [facility] CHC MED & PEDS [address] [place], [place] [phone] Davey Vasquez MD 505 [place] [address] Essential hypertension Social History Tobacco Use Types [...] documented as of this encounter Care Teams Radiologic Technology Teacher Relationship Specialty Start Date End Date Davey Vasquez MD [address] [place] [address] PCP - General Internal Medicine 04/21/12 documented as of this encounter
== END 2025-03-15 16:13 | disposition home or self-care (01) ==
LOC: HO.HPS 15:55
PROVIDERS: PCP Internal Medicine; Visit Provider Internal Medicine
DX: J43.9 Emphysema, unspecified (principal); R09.02 Hypoxemia; R91.1 Solitary pulmonary nodule; F17.200 Nicotine dependence, unspecified, uncomplicated
CPT/HCPCS: 99214

== ENCOUNTER → 2025-03-15 15:54 | Outpatient (BNVA) | payer MEDICARE, MEDICAID, SELFPAY | PROVIDERS: PCP Internal Medicine; Visit Provider Internal Medicine | DX: J43.9 Emphysema, unspecified (principal); R09.02 Hypoxemia; R91.1 Solitary pulmonary nodule; F17.200 Nicotine dependence, unspecified, uncomplicated | CPT/HCPCS: 99212 ==

== ENCOUNTER 2025-03-17 16:51 | Outpatient (REF) | payer MEDICARE, MEDICAID, SELFPAY ==
--- NOTE | ~2025-03-17 | CT_ITS ---
EXAMINATION: CT LUNG SCREENING FOLLOW UP WITHOUT IV CONTRAST HISTORY: F17.210 - Nicotine dependence, cigarettes, uncomplicated TECHNIQUE: Low dose axial images were obtained from the sternal notch to upper abdomen without IV contrast per standard departmental protocol. Sagittal and coronal reformatted images were also obtained and reviewed. One or more of the following techniques was used for dose reduction: Automated exposure control, adjustment of the mA and/or kV according to patient size, use of iterative reconstruction technique. DLP: 47 mGy-cm COMPARISON: Comparison is made with the prior examination dated 04/08/2024. FINDINGS: Lung nodules: Again seen is a 7 mm nodule in the right upper lobe (series 4, image 27) without change. There are 2-3 mm nodules in the right upper lobe (series 4, images 40, 41, and 46) which appear new from the prior study. There is a 5 mm nodule in the left upper lobe (series 4, image 50) without change, and a 5 mm nodule in the left lower lobe is smaller (series 4, image 73). Emphysema: severe Coronary Calcification: moderate Aortic Arch Calcification: mild Potentially Significant Incidentals : none Additional Chest Findings: There is no pleural or pericardial effusion. No mediastinal or axillary lymphadenopathy is identified. There is mild prominence of the ascending thoracic aorta measuring up to 3.5 cm in diameter. Visualized upper abdomen: The visualized portions of the liver, spleen, and adrenals have an unremarkable unenhanced appearance. CT/CT lung screen follow up IMPRESSION: No suspicious pulmonary nodules are identified. LUNG-RADS ASSESSMENT: Lung-RADS 2: Benign MANAGEMENT: Continue annual screening with LDCT in 12 months Category S: N/A Electronically signed by: Harry Vaughn MD 03/18/2025 07:12 AM EDT
--- OUTSIDE RECORDS SUMMARY | 2025-03-17 17:10 | XMS_ITS | Encounter Summary ---
Author Organization [employer] Address [address] [facility] 7t [place] [address] Care Team Providers Care Primary Care Nurse Name Role Phone Davey Vasquez MD Primary Care Provider +1- [phone] Reason for Visit * Reason Onset Date Comments Med Refill 12/23/2023 Encounter Details Date Type Department Care Team (Late st Contact Info) Description 12/23/2023 Telephone [facility] [address] [place] [address] Davey Vasquez MD 505 [place], [place] [phone] Med Refill Social History Tobacco Use Types [...] 9:29 AM EDT Medication was sent to [facility][id number] on 09/23/23 #90 with 1 refill. * Telephone Encounter - Jovita Welch - 12/23/2023 9:10 AM EDT TC from pt requesting medication refill. Medications needing refill : furosemide (Lasix) 20 MG tablet To be sent to: [facility]/pharmacy #[id number] - [place] - [address] [place] [address] documented in this encounter Plan of Treatment Not on file documented as of this encounter Visit Diagnoses Not on filedocumented in this encounter Additional Health Concerns Assessment Noted Time PHQ-9 Depression Total Score: 3 12/11/19 23 10:00 AM EDT documented as of this encounter Care Teams Primary Care Nurse Relationship Specialty Start Date End Date Davey Vasquez MD [address] [place] [address] PCP - General Internal Medicine 04/21/12 documented as of this encounter
--- OUTSIDE RECORDS SUMMARY | 2025-03-17 17:10 | XMS_ITS | Encounter Summary ---
Author Organization [facility] Address [address] [place] [address] 7t [place] [address] Care Team Providers Care Bridge Game Director Name Role Phone Davey Vasquez MD Primary Care Provider +1- [phone] Encounter Details Date Type Department Care Team ([facility] st Contact Info) Description 09/25/2022 Orders Only [facility] MED & PEDS [address] [place] [address] Bell Gutierrez LPN Social History Tobacco Use [...] on filedocumented in this encounter Care Teams Bridge Game Director Relationship Specialty Start Date End Date Davey Vasquez MD [address] [place] [address] PCP - General Internal Medicine 04/21/12 documented as of this encounter
--- OUTSIDE RECORDS SUMMARY | 2025-03-17 17:10 | XMS_ITS | Encounter Summary ---
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
--- OUTSIDE RECORDS SUMMARY | 2025-03-17 17:10 | XMS_ITS | Encounter Summary ---
Author Organization [employer] Address 75 [facility] 7 [place] [address] Care Team Providers Care Lineman A Class Name Role Phone Davey Vasquez MD Primary Care Provider +1- [phone] Reason for Visit * Reason Comments Med Refill Encounter Details Date Type Department Care Team ([facility] Contact Info) Description 09/22/2023 Refill [facility] CHC MED & PEDS [address] [place], [place] [phone] Davey Vasquez MD 505 [place] [address] Essential hypertension Social History Tobacco Use Types [...] documented as of this encounter Care Teams Lineman A Class Relationship Specialty Start Date End Date Davey Vasquez MD [address] [place] [address] PCP - General Internal Medicine 04/21/12 documented as of this encounter
--- OUTSIDE RECORDS SUMMARY | 2025-03-17 17:10 | XMS_ITS | Encounter Summary ---
Author Organization [employer] Address [address] [place] [address] [place] [address] Care Team Providers Care Tape Making Machine Operator Name Role Phone Davey Vasquez MD Primary Care Provider +1- [phone] Reason for Visit * Reason Onset Date Comments Med Refill 03/28/2023 Encounter Details Date Type Department Care Team ([facility] st Contact Info) Description 03/28/2023 Telephone [facility] CHC MED & PEDS [address] [place] [address] Davey Vasquez MD [address] [place] [address] Med Refill Social History Tobacco Use Types [...] documented as of this encounter Care Teams Tape Making Machine Operator Relationship Specialty Start Date End Date Davey Vasquez MD [address] [place] [address] PCP - General Internal Medicine 04/21/12 documented as of this encounter
--- OUTSIDE RECORDS SUMMARY | 2025-03-17 17:10 | XMS_ITS | Encounter Summary ---
Author Organization [facility] [facility] Address [address] [facility] 7t [place] [address] Care Team Providers Care Welding Machine Operator Plasma Arc Name Role Phone Davey Vasquez MD Primary Care Provider Encounter Details Date Type Department Care Team (Late st Contact Info) Description 09/04/2022 Orders Only [facility] [address] [place] [address] Peg Bradley LPN Social History Tobacco Use [...] on filedocumented in this encounter Care Teams Welding Machine Operator Plasma Arc Relationship Specialty Start Date End Date Davey Vasquez MD [address] [place] [address] PCP - General Internal Medicine 04/21/12 documented as of this encounter
--- OUTSIDE RECORDS SUMMARY | 2025-03-17 17:10 | XMS_ITS | Clinical Summary ---
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 Haryr did not like that they starved him [...] AM EDT) Hepatitis C Antibody Nonreactive Nonreactive [facility] Comment:Antibodies to HCV no t detected; does not exclude early acuteHCV infection. Blood Venous blood specimen / Unknown 04/22/2024 8:24 AM EDT 04/22/2024 2:37 PM EDT us Davey Vasquez MD LAB BLOOD ORDERABLES Final Result [facility] [address] [place], [place] [phone] * Lipid Panel, Standard (04/22/2024 8:24 AM EDT) Triglycerides 49 <150 mg/dL [facility] Comment:Desirable Triglyceri de: less than 150 mg/dLBorderline High Triglyceride 150-199 mg/dLHigh Triglyceride: 200-499 mg/dLVery High Triglyceride: greater than or equal to 5OO mg/dL Cholesterol 140 <200 mg/dL [facility] Comment:Desirable Cholestero l: less than 200 mg/dLBorderline High Cholesterol: 200-239 mg/dLHigh Cholesterol: greater than 239 mg/dL LDL Cholesterol Calculated 72 <100 mg/dL [facility] Comment:Desirable LDL: less than 100 mg/dLNear Optimal/Above Optimal LDL: 110- 129 mg/dLBorderline High LDL: 130-159 mg/dLHigh LDL: 160-189 mg/dLVery High LDL: greater than or equal to 190 mg/dL HDL Cholesterol 59 >40 mg/dL [facility] Comment:Desirable HDL: great er than 40 mg/dL Note: This HDL assay may give artificially low results in patients with liver disease. Blood Venous blood specimen / Unknown 04/22/2024 8:24 AM EDT 04/22/2024 2:37 PM EDT us Davey Vasquez MD LAB BLOOD ORDERABLES Final Result Performing Organization Address City/State/[facility] Co de Phone Number [facility] [address] [place] [address] [phone] from Last 3 Months or Most Recently Relevant to Health Maintenance Insurance [place] [address] [place] [id number] [facility] STANDARD Care Teams Retort Cooler Relationship Specialty Start Date End Date Davey Vasquez MD [address] [place] [address] [place] [address] PCP - General Internal Medicine 04/21/12
--- OUTSIDE RECORDS SUMMARY | 2025-03-17 17:10 | XMS_ITS | Encounter Summary ---
Author Organization [employer] Address [address] [facility] 7t [place] [address] Care Team Providers Care Prop Sawyer Name Role Phone Davey Vasquez MD Primary Care Provider [phone]- [phone] Reason for Visit * Reason Comments Med Refill Encounter Details Date Type Department Care Team ([facility] Contact Info) Description 03/20/2024 Refill [facility] CH[facility] MED & PEDS [address] [place], [place] [phone] Davey Vasquez MD [address] [place] [address] Essential hypertension Social History Tobacco Use Types [...] documented as of this encounter Care Teams Prop Sawyer Relationship Specialty Start Date End Date Davey Vasquez MD [address] [place] [address] PCP - General Internal Medicine 04/21/12 documented as of this encounter
== END 2025-03-17 16:52 | disposition home or self-care (01) ==
LOC: HO.CT 16:51
PROVIDERS: PCP Internal Medicine; Visit Provider Physician Assistant Medical
DX: Z12.2 Encounter for screening for malignant neoplasm of respiratory organs (principal); F17.210 Nicotine dependence, cigarettes, uncomplicated
CPT/HCPCS: 71250

== ENCOUNTER → 2025-03-17 16:53 | Outpatient (BNV) | payer MEDICARE, MEDICAID, SELFPAY | PROVIDERS: PCP Internal Medicine; Visit Provider Radiology Diagnostic Radiology | DX: Z12.2 Encounter for screening for malignant neoplasm of respiratory organs (principal); Z87.891 Personal history of nicotine dependence | CPT/HCPCS: 71250 ==

== ENCOUNTER 2025-03-18 13:40 | Outpatient (AMB) | payer MEDICARE, MEDICAID, SELFPAY ==
[2025-03-18 14:10] VITALS: PULSE 93; O2SAT 96
--- NOTE | 2025-03-18 14:10 | A.OFFVIS_ITS ---
Vital Signs 03/18/25 14:10 Weight 143 lb 4.807 oz Pulse 93 Pulse Source Pulse Oximeter Pulse Oximetry (%) 96 Oxygen Delivery Method Nasal Cannula Oxygen Flow Rate 2 Intake Visit Reasons: 6MW Staple Processing Machine Operator Required: No Allergies contac cold Adverse Reaction (Intermediate, Uncoded 03/18/25 14:10) Nausea and Vomiting Medication List - Last Reconciled 03/18/25 by Ariana Ervin LPN Anoro Ellipta 62.5-25 mcg/actuation (umeclidinium-vilanterol) 1 ea PO DAILY NS aspirin 81 mg PO DAILY atorvastatin 40 mg PO DAILY Combivent Respimat 20-100 mcg/actuation (ipratropium-albuterol) 1 puff PO Q6H NS fluticasone furoate-vilanterol 100-25 mcg/dose (Breo Ellipta) 1 inh inhalation DAILY 30 days furosemide 20 mg PO DAILY PFSH Medical History (Updated 03/24/25 @ 12:15 by Solomon Peguero MD) Prostate cancer Stroke Heart attack Coronary artery calcification seen on CAT scan Hypoxemia COPD (chronic obstructive pulmonary disease) Nicotine dependence, cigarettes, uncomplicated History of fall Surgical History H/O colonoscopy History of hand surgery History of prostate surgery Social History Patient Tobacco Use Status: Former Tobacco user Tobacco use type: Cigarette Cigarettes Per Day: 3 service: Yes Physical Exam Vital Signs: Last Vital Signs Pulse 93 03/18/25 14:10 Pulse Ox 96 03/18/25 14:10 Oxygen Delivery Method Nasal Cannula 03/18/25 14:10 Oxygen Flow Rate 2 03/18/25 14:10 Office Procedures 6 Minute Walk Time:: 14:00 SPO2 % at rest: 96 Pulse at rest: 93 SPO2 % during excercise: 88 Pulse during excercise: 116 SPO2 % after excercise: 93 Pulse after excercise: 116 Distance in yards walked: 280 Performance Observations:: Harry walked on level ground without assistance, he walked for 3 minutes before his SPO2 dropped to 88% on room air. Pulsed O2 started at setting 2 and recovered to 90%. His SPO2 again decreased to 88% on ambulation. Pulsed O2 increased to setting 3, his SPO2 recovered to 95%. He maintained his SPO2 93-95% on pulsed O2 setting 3. [id number] - 6 Minute Walk Assessment & Plan Assessment & Plan (1) COPD (chronic obstructive pulmonary disease): Comment: Patient was here for 6 minutes walk test Code(s): J44.9 - Chronic obstructive pulmonary disease, unspecified Category: Medical Qualifiers: COPD type: emphysema Emphysema type: unspecified Qualified Code(s): J43.9 - Emphysema, unspecified Plan As above Orders: Orders AMB 6 minute walk 03/18/25 J43.9 - Emphysema, unspecified Coding Level of Care Code Established Pt Est Pt Level 1 (98432) Patient Type Established Diagnoses Pulmonary emphysema, unspecified emphysema type J43.9 COPD type: emphysema Emphysema type: unspecified CPT Codes Coding ([id number]) Comment NURSE VISIT ONLY
[2025-03-18 14:13] VITALS: PULSE 93; O2SAT 96
--- OUTSIDE RECORDS SUMMARY | 2025-03-18 14:24 | XMS_ITS | Encounter Summary ---
Author Organization [employer] [facility] Address [address] [facility] 7t [place] [address] Care Team Providers Care Brim Blocker Name Role Phone Davey Vasquez MD Primary Care Provider [phone] Encounter Details Date Type Department Care Team (Late st Contact Info) Description 09/04/2022 Orders Only [facility] MEDICINE [address] [place] [address] Peg Bradley LPN Social History Tobacco Use [...] on filedocumented in this encounter Care Teams Brim Blocker Relationship Specialty Start Date End Date Davey Vasquez MD 505 [place] [address] PCP - General Internal Medicine 04/21/12 documented as of this encounter
--- OUTSIDE RECORDS SUMMARY | 2025-03-18 14:24 | XMS_ITS | Encounter Summary ---
Author Organization [employer] Address [address] [facility] 7 [place] [address] Care Team Providers Care Outboard Motors Experimental Mechanic Name Role Phone Davey Vasquez MD Primary Care Provider [phone]- [phone] Reason for Visit * Reason Comments Med Refill Encounter Details Date Type Department Care Team ([facility] Contact Info) Description 09/22/2023 Refill [facility] CHC MED & PEDS [address] [place], [place] [phone] Davey Vasquez MD 505 [place] [address] Essential hypertension Social History Tobacco Use Types [...] documented as of this encounter Care Teams Outboard Motors Experimental Mechanic Relationship Specialty Start Date End Date Davey Vasquez MD [address] [place] [address] PCP - General Internal Medicine 04/21/12 documented as of this encounter
--- OUTSIDE RECORDS SUMMARY | 2025-03-18 14:24 | XMS_ITS | Encounter Summary ---
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
--- OUTSIDE RECORDS SUMMARY | 2025-03-18 14:24 | XMS_ITS | Encounter Summary ---
Author Organization [employer] [facility] Address [address] [place] [address] 7t [place] [address] Care Team Providers Care Mallet Cutter Name Role Phone Davey Vasquez MD Primary Care Provider [phone]- [phone] Encounter Details Date Type Department Care Team ([facility] st Contact Info) Description 09/25/2022 Orders Only [facility] MED [facility] PEDS [address] [place] [address] Bell Gutierrez LPN Social History Tobacco Use [...] on filedocumented in this encounter Care Teams Mallet Cutter Relationship Specialty Start Date End Date Davey Vasquez MD [address] [place] [address] PCP - General Internal Medicine 04/21/12 documented as of this encounter
--- OUTSIDE RECORDS SUMMARY | 2025-03-18 14:24 | XMS_ITS | Encounter Summary ---
Author Organization [employer] Address [address] [place] [address] [place] [address] Care Team Providers Care Millinery Salesperson Name Role Phone Davey Vasquez MD Primary Care Provider [phone]- [phone] Reason for Visit * Reason Onset Date Comments Med Refill 03/28/2023 Encounter Details Date Type Department Care Team ([facility] st Contact Info) Description 03/28/2023 Telephone [facility] CH[facility] MED & PEDS [address] [place] [address] Davey Vasquez MD [address] [place] [address] Med Refill Social History Tobacco Use Types [...] documented as of this encounter Care Teams Millinery Salesperson Relationship Specialty Start Date End Date Davey Vasquez MD [address] [place] [address] PCP - General Internal Medicine 04/21/12 documented as of this encounter
--- OUTSIDE RECORDS SUMMARY | 2025-03-18 14:24 | XMS_ITS | Encounter Summary ---
Author Organization [employer] Address [address] [facility] 7t [place] [address] Care Team Providers Care Cell Attendant Helper Name Role Phone Davey Vasquez MD Primary Care Provider [phone]- [phone] Reason for Visit * Reason Comments Med Refill Encounter Details Date Type Department Care Team ([facility] Contact Info) Description 03/20/2024 Refill [facility] CH[facility] MED & PEDS [address] [place], [place] [phone] Davey Vasquez MD 505 [place] [address] Essential hypertension Social History Tobacco Use Types [...] documented as of this encounter Care Teams Cell Attendant Helper Relationship Specialty Start Date End Date Davey Vasquez MD [address] [place] [address] PCP - General Internal Medicine 04/21/12 documented as of this encounter
--- OUTSIDE RECORDS SUMMARY | 2025-03-18 14:24 | XMS_ITS | Encounter Summary ---
Author Organization [employer] Address [address] [facility] 7t [place] [address] Care Team Providers Care Reference Library Assistant Name Role Phone Davey Vasquez MD Primary Care Provider [phone]- [phone] Encounter Details Date Type Department Care Team ([facility] st Contact Info) Description 03/18/2025 Results Follow-Up [facility] MED & PEDS [address] [place], [place] [phone] Davey Vasquez MD [address] [place] [address] CT Lung Screening Low dose Social History Tobacco Use Types Packs/Day Years [...] the past 12 months, has t he [employer], gas, oil or water company threatened to [...] documented as of this encounter Care Teams Reference Library Assistant Relationship Specialty Start Date End Date Davey Vasquez MD [address] [place] [address] PCP - General Internal Medicine 04/21/12 documented as of this encounter
--- OUTSIDE RECORDS SUMMARY | 2025-03-18 14:24 | XMS_ITS | Encounter Summary ---
Author Organization [employer] Address [address] [facility] 7t [place] [address] Care Team Providers Care Internal Communications Manager Name Role Phone Davey Vasquez MD Primary Care Provider [phone]- [phone] Reason for Visit * Reason Onset Date Comments Med Refill 12/23/2023 Encounter Details Date Type Department Care Team (Late st Contact Info) Description 12/23/2023 Telephone [facility] MEDICINE [address] [place] [address] Davey Vasquez MD [address] [place], [place] [phone] Med Refill Social History Tobacco Use Types [...] 9:29 AM EDT Medication was sent to [facility][id number] on 09/23/23 #90 with 1 refill. * Telephone Encounter - Jovita Welch - 12/23/2023 9:10 AM EDT TC from pt requesting medication refill. Medications needing refill : furosemide (Lasix) 20 MG tablet To be sent to: [facility]/pharmacy #[id number] - [place] - [address] [place] [address] documented in this encounter Plan of Treatment Not on file documented as of this encounter Visit Diagnoses Not on filedocumented in this encounter Additional Health Concerns Assessment Noted Time PHQ-9 Depression Total Score: 3 12/11/19 23 10:00 AM EDT documented as of this encounter Care Teams Internal Communications Manager Relationship Specialty Start Date End Date Davey Vasquez MD [address] [place] [address] PCP - General Internal Medicine 04/21/12 documented as of this encounter
--- OUTSIDE RECORDS SUMMARY | 2025-03-18 14:24 | XMS_ITS | Clinical Summary ---
Author Organization [employer] Address [address] [place] [address] 7t [place] [address] Care Team Providers Care Cane Burner Name Role Phone Davey Vasquez MD Primary Care Provider [phone] Allergies Active Allergy Reactions Criticality Noted Date Comments Acetaminophen 04/21/2012 Tkwvrvlao-Nw-Bpsijngbvropz Nausea And Vomiting High 12/31/2023 Chlorpheniramine 04/21/2012 [...] atorvastatin (Lipitor) 40 MG tabletIndications :Atherosclerosis of [place] coronary artery of [place] heart with other form of angina pectoris [...] Encounters Date Type Department Care Team Description 03/18/2025 Results Follow-Up [facility] [address] [place] [address] Lung Screening Low dose 03/17/2025 Orders Only [facility] External Provider, [facility] from Last 3 Months Immunizations Immunization Administration [...] Procedure Name Priority Date/Time Associated Diagnosis Comments CT LUNG SCREENING Routine 03/17/2025 5:0 3 PM EDT HEPATITIS C AB W/REFL TO HCV RNA, [...] Recently Relevant to Health Maintenance Results * CT Lung Screening Low dose (03/17/2025 5:03 PM EDT) Anatomical Region Laterality Modality Lung Computed Tomogra phy 03/17/2025 5:03 PM EDT Narrative 03/18/2025 7:15 AM EDT [place] [address] [address] Scan Report Signed Patient: Harry Delgado MR#: [id number] 717 : 1950 Acct:[id number] Age/Sex: 74 / M ADM Date: 03/17/25 Loc: HO.CT Attending Dr: Ghada Amezcua PA-C Ordering Physician: Ghada Amezcua PA-C Date of Service: 03/17/25 Procedure(s): CT lung screen follow up Accession Number(s): [id number] cc: Davey Vasquez MD; Ghada Amezcua PA-C Report Number: [id number]: Total DLP = 47.00 mGy-cm EXAMINATION: CT LUNG SCREENING FOLLOW UP WITHOUT IV CONTRAST HISTORY: F17.210 - Nicotine dependence, cigarettes, uncomplicated TECHNIQUE: Low dose axial images were obtained from the sternal notch to upper abdomen without IV contrast per standard departmental protocol. Sagittal and coronal reformatted images were also obtained and reviewed. One or more of the following techniques was used for dose reduction: Automated exposure control, adjustment of the mA and/or kV according to patient size, use of iterative reconstruction technique. DLP: 47 mGy-cm COMPARISON: Comparison is made with the prior examination dated 04/08/2024. FINDINGS: Lung nodules: Again seen is a 7 mm nodule in the right upper lobe (series 4, image 27) without change. There are 2-3 mm nodules in the right upper lobe (series 4, images 40, 41, and 46) which appear new from the prior study. There is a 5 mm nodule in the left upper lobe (series 4, image 50) without change, and a 5 mm nodule in the left lower lobe is smaller (series 4, image 73). Emphysema: severe Coronary Calcification: moderate Aortic Arch Calcification: mild Potentially Significant Incidentals : none Additional Chest Findings: There is no pleural or pericardial effusion. No mediastinal or axillary lymphadenopathy is identified. There is mild prominence of the ascending thoracic aorta measuring up to 3.5 cm in diameter. Visualized upper abdomen: The visualized portions of the liver, spleen, and adrenals have an unremarkable unenhanced appearance. CT/CT lung screen follow up IMPRESSION: No suspicious pulmonary nodules are identified. LUNG-RADS ASSESSMENT: Lung-RADS 2: Benign MANAGEMENT: Continue annual screening with LDCT in 12 months Category S: N/A Electronically signed by: Harry Vaughn MD 03/18/2025 07:12 AM EDT Dictated By: Harry Vaughn MD Signed By: <Electronically signed by Harry Vaughn MD in OV> 03/18/25 0712 DD/ 170 TD/TT: 03/17/25 1729 Dust Brush Assembler: Procedure Note Donotuseinterpreter, Image - 03/18/[address] [address] [address] Scan Report Signed Patient: Harry Delgado#: [id number] 717 : 2Acct:[id number] Age/Sex: 74 / MADM Date: 03/17/25 Loc: HO.CT Attending Dr: Ghada Amezcua PA-C Ordering Physician: Ghada Amezcua PA-C Date of Service: 03/17/25 Procedure(s): CT lung screen follow up Accession Number(s): [id number] cc: Davey Vasquez MD; Ghada Amezcua PA-C Report Number: [id number]: Total DLP = 47.00 mGy-cm EXAMINATION: CT LUNG SCREENING FOLLOW UP WITHOUT IV CONTRAST HISTORY: F17.210 - Nicotine dependence, cigarettes, uncomplicated TECHNIQUE: Low dose axial images were obtained from the sternal notch to upper abdomen without IV contrast per standard departmental protocol. Sagittal and coronal reformatted images were also obtained and reviewed. One or more of the following techniques was used for dose reduction: Automated exposure control, adjustment of the mA and/or kV according to patient size, use of iterative reconstruction technique. DLP: 47 mGy-cm COMPARISON: Comparison is made with the prior examination dated 04/08/2024. FINDINGS: Lung nodules: Again seen is a 7 mm nodule in the right upper lobe (series 4, image 27) without change. There are 2-3 mm nodules in the right upper lobe (series 4, images 40, 41, and 46) which appear new from the prior study. There is a 5 mm nodule in the left upper lobe (series 4, image 50) without change, and a 5 mm nodule in the left lower lobe is smaller (series 4, image 73). Emphysema: severe Coronary Calcification: moderate Aortic Arch Calcification: mild Potentially Significant Incidentals : none Additional Chest Findings: There is no pleural or pericardial effusion. No mediastinal or axillary lymphadenopathy is identified. There is mild prominence of the ascending thoracic aorta measuring up to 3.5 cm in diameter. Visualized upper abdomen: The visualized portions of the liver, spleen, and adrenals have an unremarkable unenhanced appearance. CT/CT lung screen follow up IMPRESSION: No suspicious pulmonary nodules are identified. LUNG-RADS ASSESSMENT: Lung-RADS 2: Benign MANAGEMENT: Continue annual screening with LDCT in 12 months Category S: N/A Electronically signed by: Harry Vaughn MD 03/18/2025 07:12 AM EDT RP Dictated By: Harry Vaughn MD Signed By: <Electronically signed by Harry Vaughn MD in OV> 03/18/25 0712 DD/ 1703 TD/TT: 03/17/25 1729 Dust Brush Assembler: [facility] External Provider IMG CT PROCEDURES Final Result * Hepatitis C Antibody with Reflex to HCV, RNA, Quantitative, Real-Time PCR (04/22/2024 8:24 AM EDT) Hepatitis C Antibody Nonreactive Nonreactive [facility] Comment:Antibodies to HCV no t detected; does not exclude early acuteHCV infection. Blood Venous blood specimen / Unknown 04/22/2024 8:24 AM EDT 04/22/2024 2:37 PM EDT Davey Vasquez MD LAB BLOOD ORDERABLES Final Result [facility] [address] [place] [phone] * Lipid Panel, Standard (04/22/2024 8:24 AM EDT) Triglycerides 49 <150 mg/dL [facility] Comment:Desirable Triglyceri de: less than 150 mg/dLBorderline High Triglyceride 150-199 mg/dLHigh Triglyceride: 200-499 mg/dLVery High Triglyceride: greater than or equal to 5OO mg/dL Cholesterol 140 <200 mg/dL [facility] Comment:Desirable Cholestero l: less than 200 mg/dLBorderline High Cholesterol: 200-239 mg/dLHigh Cholesterol: greater than 239 mg/dL LDL Cholesterol Calculated 72 <100 mg/dL [facility] Comment:Desirable LDL: less than 100 mg/dLNear Optimal/Above Optimal LDL: 110- 129 mg/dLBorderline High LDL: 130-159 mg/dLHigh LDL: 160-189 mg/dLVery High LDL: greater than or equal to 190 mg/dL HDL Cholesterol 59 >40 mg/dL [facility] Comment:Desirable HDL: great er than 40 mg/dL Note: This HDL assay may give artificially low results in patients with liver disease. Blood Venous blood specimen / Unknown 04/22/2024 8:24 AM EDT 04/22/2024 2:37 PM EDT Davey Vasquez MD LAB BLOOD ORDERABLES Final Result [facility] [address] [place] [address] [phone] from Last 3 Months or Most Recently Relevant to Health Maintenance Insurance MEDICARE Member Subscriber Plan / Payer (Ef fective 2022-Present) Name:Harry Delgado Member ID:[id number] Relation to Subscriber:Self Name:Harry Delgado Subscriber ID:[id number] Payer ID:STATE Group ID:Not on file Type:Medicare Address: [facility] [employer], [facility]. [address] [place] [address] [facility] STANDARD Care Teams Cane Burner Relationship Specialty Start Date End Date Davey Vasquez MD [address] [place] [address] [place] [address] PCP - General Internal Medicine 04/21/12
--- OUTSIDE RECORDS SUMMARY | 2025-03-18 14:24 | XMS_ITS | Encounter Summary ---
Author Organization [employer] [facility] Address [address] [facility] [address] 7t [place] [address] Care Team Providers Care Fire Alarm Inspector Name Role Phone Davey Vasquez MD Primary Care Provider [phone] Encounter Details Date Type Department Care Team (Late st Contact Info) Description 03/17/2025 Orders Only [facility] External Provider, [facility] Social History Tobacco Use Types Packs/Day Years [...] on file documented as of this encounter Procedures Procedure Name Priority Date/Time Associated Diagnosis Comments CT LUNG SCREENING Routine 03/17/2025 5:0 3 PM EDT documented in this encounter Results * CT Lung Screening Low dose (03/17/2025 5:03 PM EDT) Anatomical Region Laterality Modality Lung Computed Tomogra phy 03/17/2025 5:03 PM EDT Narrative 03/18/2025 7:15 AM EDT [address] [address] [address] Scan Report Signed Patient: Harry Delgado MR#: [id number] 717 : 1950 Acct:[id number] Age/Sex: 74 / M ADM Date: 03/17/25 Loc: HO.CT Attending Dr: Ghada Amezcua PA-C Ordering Physician: Ghada Amezcua PA-C Date of Service: 03/17/25 Procedure(s): CT lung screen follow up Accession Number(s): [id number] cc: Davey Vasquez MD; Ghada Amezcua PA-C Report Number: [id number]: Total DLP = 47.00 mGy-cm EXAMINATION: CT [...] 03/18/25 0712 DD/ 1703 TD/TT: 03/17/25 1729 Cap Blocker: Procedure Note Donotuseinterpreter, Image - 03/18/[address] [place] [address] [address] Scan Report Signed Patient: Harry Delgado [facility]#: [id number] 717 : 1950cct:[id number] Age/Sex: 74 / MADM Date: 03/17/25 Loc: HO.CT Attending Dr: Ghada Amezcua PA-C Ordering Physician: Ghada Amezcua PA-C Date of Service: 03/17/25 Procedure(s): CT lung screen follow up Accession Number(s): [id number] cc: Davey Vasquez MD; Ghada Amezcua PA-C Report Number: [id number]: Total DLP = 47.00 mGy-cm EXAMINATION: CT [...] 03/18/25 0712 DD/ 170 TD/TT: 03/17/25 1729 Cap Blocker: [facility] External Provider IMG CT PROCEDURES Final Result documented in this encounter Visit Diagnoses Not on filedocumented in this encounter Additional Health Concerns Assessment Noted Time PHQ-9 Depression Total Score: 3 12/11/19 23 10:00 AM EDT documented as of this encounter Care Teams Fire Alarm Inspector Relationship Specialty Start Date End Date Davey Vasquez MD [address] [place] [address] PCP - General Internal Medicine 04/21/12 documented as of this encounter
== END 2025-03-18 14:09 | disposition home or self-care (01) ==
LOC: HO.HPS 13:41
PROVIDERS: PCP Internal Medicine; Visit Provider Internal Medicine
DX: J98.4 Other disorders of lung (principal)
CPT/HCPCS: 94618

== ENCOUNTER → 2025-03-18 13:40 | Outpatient (BNVA) | payer MEDICARE, MEDICAID, SELFPAY | PROVIDERS: PCP Internal Medicine; Visit Provider Internal Medicine | DX: J43.9 Emphysema, unspecified (principal); Z87.891 Personal history of nicotine dependence | CPT/HCPCS: 94618; 99211 ==